=== PATIENT | male | born 1975 | race Two or more races ===

== ENCOUNTER → 2022-06-01 | Outpatient (CLI) | payer MEDICAID | END | disposition home or self-care (01) | LOC: XYW 08:59 | PROVIDERS: ATTEND Student in an Organized Health Care Education/Training Program | DX: I73.9 Peripheral vascular disease, unspecified (principal) | CPT/HCPCS: 93925 ==

== ENCOUNTER 2022-08-09 18:56 | Inpatient (IN) | payer MEDICAID ==
[~2022-08-09] VITALS: Ht 175.3 cm; Wt 71.6 kg
[2022-08-09 20:04] LABS: Basophils # (auto) 0 10 ^3/uL (0-0.2); Basophils % (auto) 0.3 % (0.0-2.0); Eosinophils # (auto) 0.3 10 ^3/uL (0-0.8); Eosinophils % (auto) 4.7 % (0.0-7.0); Hemoglobin 12.8 g/dL (13.5-17.5); Lymphocytes # (auto) 1.3 10 ^3/uL (0.4-5.4); Lymphocytes % (auto) 17.7 % (10.0-50.0); Mean Corpuscular Hemoglobin 28.4 pg (28.0-32.0); Mean Corpuscular Hgb Conc. 32.8 g/dL (32.0-36.0); Mean Corpuscular Volume 86.7 fL (80.0-100.0); Monocytes # (auto) 0.3 10 ^3/uL (0-1.3); Monocytes % (auto) 4.5 % (0.0-12.0); Neutrophils # (auto) 5.2 10 ^3/uL (1.6-8.6); Neutrophils % (auto) 72.8 % (37.0-80.0); Nucleated Red Blood Cells % 0.1 %; Red Cell Distribution Width 14.3 % (11.8-14.3); White Blood Cell 7.2 10^3/uL (4.4-10.8)
[2022-08-09] MEDS ORDERED: FUROSEMIDE 40 MG/4 ML VIAL IV ONE (20:15)
[2022-08-09 20:19] LABS: INR 0.94 (0.9-1.15); Partial Thromboplastin Time 29.6 sec (24.6-33.4)
[2022-08-09 20:23] LABS: Albumin 3.5 g/dL (3.4-5.0); BUN/Creatinine Ratio 25.6; Calcium 9.1 mg/dL (8.5-10.1); Potassium 5.2 mmol/L (3.5-5.1)
[2022-08-09 20:26] LABS: Bilirubin, Total 0.6 mg/dL (0.2-1.0)
[2022-08-09] MEDS ORDERED: ALBUTEROL MEDNEB 2.5 mg/3ml NEB ONE (21:45)
[2022-08-09] MEDS ORDERED: HYDROcodone-ACET 5/325MG TAB PO ONE (21:45)
[2022-08-09] MEDS ORDERED: ONDANSETRON HCL 4 MG/2 ML VIAL IV ONE (23:45)
[2022-08-10] MEDS ORDERED: ALBUTEROL SULF 2.5 MG/0.5ML(0.5%) NEB SOLN NEB ONE (02:00)
[2022-08-10 04:20] VITALS: BP 107/69
[2022-08-10] MEDS ORDERED: DEXTROSE (50%) 50ML SYRG IV PRN (04:30)
[2022-08-10] MEDS ORDERED: ONDANSETRON HCL 4 MG/2 ML VIAL IV PRN (04:30)
[2022-08-10] MEDS ORDERED: NITROGLYCERIN 0.4 MG SL TAB SL PRN (04:30)
[2022-08-10] MEDS ORDERED: ACETAMINOPHEN 325 MG TAB PO PRN (04:30)
[2022-08-10] MEDS: SODIUM CHLORIDE 0.9% 1,000 ML IV SCH ×2 (05:20→21:25)
[2022-08-10 06:02] LABS: Basophils # (auto) 0 10 ^3/uL (0-0.2); Basophils % (auto) 0.5 % (0.0-2.0); Eosinophils # (auto) 0.1 10 ^3/uL (0-0.8); Eosinophils % (auto) 1.4 % (0.0-7.0); Hematocrit 27.5 % (41.0-53.0); Hemoglobin 9.2 g/dL (13.5-17.5); Lymphocytes # (auto) 0.9 10 ^3/uL (0.4-5.4); Lymphocytes % (auto) 14.9 % (10.0-50.0); Mean Corpuscular Hemoglobin 29.3 pg (28.0-32.0); Mean Corpuscular Hgb Conc. 33.3 g/dL (32.0-36.0); Mean Corpuscular Volume 88.2 fL (80.0-100.0); Monocytes # (auto) 0.2 10 ^3/uL (0-1.3); Monocytes % (auto) 4.3 % (0.0-12.0); Neutrophils # (auto) 4.6 10 ^3/uL (1.6-8.6); Neutrophils % (auto) 78.9 % (37.0-80.0); Nucleated Red Blood Cells % 0.1 %; Red Blood Cells 3.12 10^6/uL (4.5-5.90); Red Cell Distribution Width 14.2 % (11.8-14.3); White Blood Cell 5.8 10^3/uL (4.4-10.8)
[2022-08-10 06:21] LABS: Albumin 2.2 g/dL (3.4-5.0); BUN/Creatinine Ratio 26.4; Calcium 6.2 mg/dL (8.5-10.1); Potassium 4.4 mmol/L (3.5-5.1)
[2022-08-10 06:25] LABS: Bilirubin, Total 0.4 mg/dL (0.2-1.0); Total Protein 4.9 g/dL (6.4-8.2)
[2022-08-10] MEDS: ACCU-CHEK COMFORT CURVE STRIP VI SCH ×4 (07:00→21:36)
[2022-08-10] MEDS: InsuLIN REG 1unit/0.01ml Soln (100units/ml) SC SCH ×4 (07:46→21:29)
[2022-08-10 10:27] VITALS: BP 131/74
[2022-08-10] MEDS: FUROSEMIDE 40 MG/4 ML VIAL IV SCH (10:59)
[2022-08-10] MEDS ORDERED: INSU100I43 SC (11:08)
[2022-08-10] MEDS ORDERED: HYDR-4798 PO (11:08)
[2022-08-10] MEDS ORDERED: POTA10TA51 PO (11:08)
[2022-08-10] MEDS ORDERED: GABA100C9 PO (11:08)
[2022-08-10] MEDS ORDERED: INSUINJ37 SC (11:08)
[2022-08-10] MEDS ORDERED: METF-370 PO (11:08)
[2022-08-10] MEDS ORDERED: LISI2.5T47 PO (11:08)
[2022-08-10] MEDS ORDERED: DAPA1TAB4 PO (11:08)
[2022-08-10] MEDS ORDERED: FURO40TA4 PO (11:08)
[2022-08-10] MEDS: MORPHINE SULFATE INJ 2 MG/ml SYRG IV PRN ×3 (11:33→21:24)
[2022-08-10 13:00] VITALS: BP 125/73
[2022-08-10 16:42] VITALS: BP 159/88
[2022-08-10] MEDS: SUCRALFATE 1 GM TAB PO SCH (21:24)
[2022-08-10] MEDS: PANTOPRAZOLE 40 MG TAB PO SCH (21:24)
[2022-08-10 22:00] VITALS: BP 131/74
[2022-08-11] MEDS: MORPHINE SULFATE INJ 2 MG/ml SYRG IV PRN ×4 (02:19→19:52)
[2022-08-11 05:00] VITALS: BP 131/78
[2022-08-11] MEDS: SUCRALFATE 1 GM TAB PO SCH ×4 (06:09→21:53)
[2022-08-11] MEDS: ACCU-CHEK COMFORT CURVE STRIP VI SCH ×4 (06:11→22:04)
[2022-08-11] MEDS: InsuLIN REG 1unit/0.01ml Soln (100units/ml) SC SCH ×4 (06:11→22:04)
[2022-08-11 06:21] LABS: Basophils # (auto) 0 10 ^3/uL (0-0.2); Basophils % (auto) 0.4 % (0.0-2.0); Eosinophils # (auto) 0.2 10 ^3/uL (0-0.8); Eosinophils % (auto) 4.3 % (0.0-7.0); Hematocrit 32.8 % (41.0-53.0); Hemoglobin 11.2 g/dL (13.5-17.5); Lymphocytes % (auto) 17.4 % (10.0-50.0); Mean Corpuscular Hemoglobin 28.7 pg (28.0-32.0); Mean Corpuscular Hgb Conc. 34.3 g/dL (32.0-36.0); Mean Corpuscular Volume 83.7 fL (80.0-100.0); Monocytes # (auto) 0.4 10 ^3/uL (0-1.3); Monocytes % (auto) 7.9 % (0.0-12.0); Nucleated Red Blood Cells % 0.1 %; Red Blood Cells 3.92 10^6/uL (4.5-5.90); Red Cell Distribution Width 13.9 % (11.8-14.3); White Blood Cell 5.7 10^3/uL (4.4-10.8)
[2022-08-11 06:36] LABS: Albumin 2.9 g/dL (3.4-5.0); Calcium 8.4 mg/dL (8.5-10.1); Potassium 4.7 mmol/L (3.5-5.1)
[2022-08-11 06:53] LABS: BUN/Creatinine Ratio 26.5; Bilirubin, Total 0.6 mg/dL (0.2-1.0); Total Protein 6.7 g/dL (6.4-8.2)
[2022-08-11 07:50] VITALS: BP 136/81
[2022-08-11] MEDS: FUROSEMIDE 40 MG/4 ML VIAL IV SCH (10:00)
[2022-08-11] MEDS: PANTOPRAZOLE 40 MG TAB PO SCH ×2 (10:00→21:53)
[2022-08-11 12:43] VITALS: BP 137/85
[2022-08-11] MEDS: SODIUM CHLORIDE 0.9% 1,000 ML IV SCH (13:55)
[2022-08-11 18:16] VITALS: BP 123/84
[2022-08-11 22:00] VITALS: BP 121/77
[2022-08-12] MEDS: MORPHINE SULFATE INJ 2 MG/ml SYRG IV PRN ×4 (00:22→14:39)
[2022-08-12 05:00] VITALS: BP 123/76
[2022-08-12] MEDS: SUCRALFATE 1 GM TAB PO SCH ×4 (06:36→21:38)
[2022-08-12] MEDS: ACCU-CHEK COMFORT CURVE STRIP VI SCH ×4 (06:38→22:03)
[2022-08-12] MEDS: InsuLIN REG 1unit/0.01ml Soln (100units/ml) SC SCH ×4 (06:38→22:03)
[2022-08-12] MEDS: SODIUM CHLORIDE 0.9% 1,000 ML IV SCH ×2 (06:39→23:10)
[2022-08-12 09:00] VITALS: BP 135/82
[2022-08-12] MEDS: FUROSEMIDE 40 MG/4 ML VIAL IV SCH (09:58)
[2022-08-12] MEDS: PANTOPRAZOLE 40 MG TAB PO SCH ×2 (09:58→21:38)
[2022-08-12] MEDS ORDERED: PNEUMOCOCCAL VACC POLYS 25 MCG/0.5 ML VIAL IM ONE (11:00)
[2022-08-12] MEDS ORDERED: INFLUENZA QUAD 2022-2023 0.5 ML SYRG IM ONE (11:00)
[2022-08-12] MEDS: ALBUTEROL SULF 2.5 MG/0.5ML(0.5%) NEB SOLN NEB PRN ×2 (12:12→19:01)
[2022-08-12] MEDS: IPRATROPIUM BROM 0.5 MG/2.5ML INH SOL NEB PRN ×2 (12:12→19:01)
[2022-08-12 13:00] VITALS: BP 130/81
[2022-08-12 17:00] VITALS: BP 159/86
[2022-08-12] MEDS: HYDROcodone-ACET 5/325MG TAB PO PRN (20:01)
[2022-08-12] MEDS ORDERED: ALBUTEROL SULF 2.5 MG/0.5ML(0.5%) NEB SOLN NEB PRN (20:15)
[2022-08-12 22:00] VITALS: BP 145/79
[2022-08-13] MEDS: MORPHINE SULFATE INJ 2 MG/ml SYRG IV PRN ×3 (00:27→12:52)
[2022-08-13 03:39] VITALS: BP 145/79
[2022-08-13] MEDS: HYDROcodone-ACET 5/325MG TAB PO PRN ×2 (04:25→16:24)
[2022-08-13 05:00] VITALS: BP 116/81
[2022-08-13] MEDS: InsuLIN REG 1unit/0.01ml Soln (100units/ml) SC SCH ×3 (05:46→18:45)
[2022-08-13] MEDS: ACCU-CHEK COMFORT CURVE STRIP VI SCH ×3 (05:47→18:43)
[2022-08-13] MEDS: SUCRALFATE 1 GM TAB PO SCH ×3 (06:06→18:43)
[2022-08-13] MEDS: IPRATROPIUM BROM 0.5 MG/2.5ML INH SOL NEB SCH ×2 (07:05→11:49)
[2022-08-13] MEDS: ALBUTEROL SULF 2.5 MG/0.5ML(0.5%) NEB SOLN NEB SCH ×2 (07:05→11:49)
[2022-08-13] MEDS: PANTOPRAZOLE 40 MG TAB PO SCH (08:34)
[2022-08-13] MEDS: FUROSEMIDE 40 MG/4 ML VIAL IV SCH (08:34)
[2022-08-13 09:00] VITALS: BP 128/78
[2022-08-13] MEDS ORDERED: REGADENOSON 0.4 MG/5 ML SYRG IV ONE ×2 (09:34→09:45)
[2022-08-13 09:45] VITALS: BP 126/82
[2022-08-13 12:47] LABS: Hepatitis C Antibody Negative (Negative)
[2022-08-13 13:00] VITALS: BP 85/43
[2022-08-13] MEDS: SODIUM CHLORIDE 0.9% 1,000 ML IV SCH (15:11)
[2022-08-13 17:01] VITALS: BP 118/77
== END 2022-08-13 20:00 | disposition home or self-care (01) | DRG 194 ==
LOC: ER 18:56 → TELE 08-10 04:24 → TELE-WESTW 08-10 10:15
PROVIDERS: ADMIT Nurse Practitioner Family; ATTEND Internal Medicine
DX: I11.0 Hypertensive heart disease with heart failure (principal); J96.01 Acute respiratory failure with hypoxia; I50.9 Heart failure, unspecified; R54 Age-related physical debility; E11.9 Type 2 diabetes mellitus without complications; J21.9 Acute bronchiolitis, unspecified; E87.5 Hyperkalemia; N28.9 Disorder of kidney and ureter, unspecified; Z51.5 Encounter for palliative care; Z83.3 Family history of diabetes mellitus; Z20.822 Contact with and (suspected) exposure to COVID-19
CPT/HCPCS: 36415; 36600; 71045; 71275; 78452; 80053; 82805; 82962; 83880; 84484; 85025; 85610; 85730; 86803; 87340; 87426; 93005; 93017; 93306; 94640; 96374; G0378; J1815; J2405

== ENCOUNTER 2022-08-26 02:31 | Inpatient (IN) | payer MEDICAID ==
[~2022-08-26] VITALS: Ht 162.6 cm; Wt 67.0 kg
[~2022-08-26 02:31] MED LIST: DAPA1TAB4 PO; FURO40TA4 PO; GABA100C9 PO; HYDR-4798 PO; INSU100I43 SC; INSUINJ37 SC; LISI2.5T47 PO; METF-370 PO; POTA10TA51 PO
[2022-08-26] MEDS ORDERED: LACTATED RINGER'S 1,000 ML IV ONE ×2 (03:45)
[2022-08-26 04:00] LABS: Albumin 2.6 g/dL (3.4-5.0); Anion Gap 11 (5-15); BUN/Creatinine Ratio 14.5; Blood Urea Nitrogen 37 mg/dL (7-18); Calcium 7.5 mg/dL (8.5-10.1); Carbon Dioxide 22 mmol/L (21-32); Chloride 101 mmol/L (98-107); GFR African American 35 mL/min; GFR Non-African American 29 mL/min; Potassium 4.7 mmol/L (3.5-5.1); Sodium 134 mmol/L (136-145)
[2022-08-26 04:03] LABS: Lactic Acid w/Reflex 3.5 mmol/L (0.4-2.0)
[2022-08-26 04:14] LABS: Alanine Aminotransferase 18 U/L (16-61); Alkaline Phosphatase 189 U/L (45-117); Aspartate Aminotransferase 13 U/L (15-37); Bilirubin, Total 0.7 mg/dL (0.2-1.0)
[2022-08-26 05:13] LABS: Glucose 432 mg/dL (74-106)
[2022-08-26] MEDS ORDERED: MORPHINE SULFATE 4 MG/ML SYR/VIAL IV ONE (05:45)
[2022-08-26] MEDS ORDERED: ONDANSETRON HCL 4 MG/2 ML VIAL IV ONE (05:45)
[2022-08-26] MEDS ORDERED: InsuLIN REG 1unit/0.01ml Soln (100units/ml) IV ONE (06:45)
[2022-08-26] MEDS ORDERED: LACTATED RINGER'S 2,000 ML IV ONE (06:45)
[2022-08-26 07:27] LABS: INR 0.98 (0.9-1.15); Partial Thromboplastin Time 25.6 sec (24.6-33.4)
[2022-08-26 07:35] LABS: Albumin 2.2 g/dL (3.4-5.0); BUN/Creatinine Ratio 16.7; Calcium 7.4 mg/dL (8.5-10.1); Potassium 4.8 mmol/L (3.5-5.1)
[2022-08-26 07:38] LABS: Bilirubin, Total 0.6 mg/dL (0.2-1.0); Total Protein 5.2 g/dL (6.4-8.2)
[2022-08-26 07:39] LABS: Hematocrit 30.7 % (41.0-53.0); Hemoglobin 10.2 g/dL (13.5-17.5); Mean Corpuscular Hemoglobin 28.8 pg (28.0-32.0); Mean Corpuscular Hgb Conc. 33.3 g/dL (32.0-36.0); Mean Corpuscular Volume 86.4 fL (80.0-100.0); Red Blood Cells 3.56 10^6/uL (4.5-5.90); Red Cell Distribution Width 14.5 % (11.8-14.3); White Blood Cell 8.3 10^3/uL (4.4-10.8)
[2022-08-26 07:48] LABS: Basophils % (manual) 0 (0.0-2.0); Blast Cells 0; Metamyelocytes % 0; Myelocytes % 0; Promyelocytes % 0; Reactive Lymphocytes 0
[2022-08-26 08:28] LABS: Band Neutrophils % (manual) 37; Eosinophils % (manual) 1 (0-7); Lymphocytes % (manual) 4 (10.0-50.0); Monocytes % (manual) 4 (0-12)
[2022-08-26 08:35] LABS: Urine Bacteria MOD /hpf (None Seen); Urine Blood 3+ /uL (Negative); Urine Specific Gravity 1.019 (1.001-1.035); Urine WBC 28 /hpf (0 - 3)
[2022-08-26 08:44] LABS: Alcohol, Urine < 3.0 mg/dL (0-10); Amphetamine Screen, Urine NEGATIVE (NEGATIVE); Benzodiazephine Screen, Urine NEGATIVE (NEGATIVE); Cannabinoid Screen, Urine NEGATIVE (NEGATIVE); Cocaine Screen, Urine NEGATIVE (NEGATIVE); Opiate Scree,Urine POSITIVE (NEGATIVE); Phencyclidine Screen, Urine NEGATIVE (NEGATIVE)
[2022-08-26 08:52] LABS: Barbiturate Scree,Urine NEGATIVE (NEGATIVE)
[2022-08-26] MEDS ORDERED: NITROGLYCERIN 0.4 MG SL TAB SL PRN (10:30)
[2022-08-26] MEDS ORDERED: AZITHROMYCIN 500MG/ 250ML 250 ML IV ONE (10:30)
[2022-08-26] MEDS ORDERED: MORPHINE SULFATE INJ 2 MG/ml SYRG IV PRN (10:30)
[2022-08-26] MEDS ORDERED: cefTRIAXone 1GM/50ML D5W 50 ML IV ONE (10:30)
[2022-08-26] MEDS ORDERED: FOLIC ACID 1 MG TAB PO ONE (10:45)
[2022-08-26] MEDS ORDERED: MULTIPLE VITAMIN TAB PO ONE (10:45)
[2022-08-26] MEDS ORDERED: DEXTROSE (50%) 50ML SYRG IV PRN (10:45)
[2022-08-26] MEDS ORDERED: LORazepam 2MG/ML-1ML VIAL IV SCH (10:45)
[2022-08-26] MEDS ORDERED: THIAMINE HCL 100 MG TAB PO ONE (10:45)
[2022-08-26] MEDS: SODIUM CHLORIDE 0.9% 1,000 ML IV SCH ×2 (10:59→19:28)
[2022-08-26] MEDS: ACCU-CHEK COMFORT CURVE STRIP VI SCH ×3 (11:35→21:13)
[2022-08-26] MEDS: InsuLIN REG 1unit/0.01ml Soln (100units/ml) SC SCH ×3 (11:35→21:49)
[2022-08-26] MEDS ORDERED: LORazepam 2MG/ML-1ML VIAL IV PRN (14:45)
[2022-08-26] MEDS: GABAPENTIN 100 MG CAP PO SCH ×2 (16:52→21:51)
[2022-08-26] MEDS ORDERED: GABAPENTIN 400 MG CAP ONE (21:48)
[2022-08-26] MEDS: INSULIN GLARGINE 17 UNIT SC SCH (21:53)
[2022-08-27] MEDS: SODIUM CHLORIDE 0.9% 1,000 ML IV SCH ×3 (02:44→18:51)
[2022-08-27 05:24] LABS: Basophils # (auto) 0 10 ^3/uL (0-0.2); Basophils % (auto) 0.2 % (0.0-2.0); Eosinophils # (auto) 0.3 10 ^3/uL (0-0.8); Eosinophils % (auto) 3.5 % (0.0-7.0); Hematocrit 28.8 % (41.0-53.0); Lymphocytes # (auto) 0.9 10 ^3/uL (0.4-5.4); Lymphocytes % (auto) 11.7 % (10.0-50.0); Mean Corpuscular Hemoglobin 29.5 pg (28.0-32.0); Mean Corpuscular Hgb Conc. 34.9 g/dL (32.0-36.0); Mean Corpuscular Volume 84.5 fL (80.0-100.0); Monocytes # (auto) 0.4 10 ^3/uL (0-1.3); Monocytes % (auto) 5.2 % (0.0-12.0); Neutrophils # (auto) 6.3 10 ^3/uL (1.6-8.6); Neutrophils % (auto) 79.4 % (37.0-80.0); Nucleated Red Blood Cells % 0.1 %; Red Blood Cells 3.41 10^6/uL (4.5-5.90); Red Cell Distribution Width 14.2 % (11.8-14.3); White Blood Cell 7.9 10^3/uL (4.4-10.8)
[2022-08-27] MEDS ORDERED: HYDROcodone-ACET 5/325MG TAB PO PRN (05:45)
[2022-08-27 05:47] LABS: Albumin 2.1 g/dL (3.4-5.0); Calcium 7.7 mg/dL (8.5-10.1); Potassium 4.4 mmol/L (3.5-5.1)
[2022-08-27 05:49] LABS: Bilirubin, Total 0.5 mg/dL (0.2-1.0); Total Protein 5.6 g/dL (6.4-8.2)
[2022-08-27] MEDS ORDERED: GABAPENTIN 400 MG CAP ONE (05:55)
[2022-08-27] MEDS: GABAPENTIN 100 MG CAP PO SCH (05:55)
[2022-08-27] MEDS: ACCU-CHEK COMFORT CURVE STRIP VI SCH ×4 (06:21→22:31)
[2022-08-27] MEDS: InsuLIN REG 1unit/0.01ml Soln (100units/ml) SC SCH ×4 (06:26→22:35)
[2022-08-27] MEDS: cefTRIAXone 1GM/50ML D5W 50 ML IV SCH (09:33)
[2022-08-27] MEDS: HYDROcodone-ACET 10/325MG TAB PO PRN ×2 (09:35→20:10)
[2022-08-27 09:42] LABS: BUN/Creatinine Ratio 17.7
[2022-08-27] MEDS: DAPAGLIFLOZIN PROPANEDIOL 5 MG PO SCH (10:00)
[2022-08-27] MEDS ORDERED: PATIENTS OWN MEDICATION (Potassium Chloride (Potassium Chloride Cr) 1 TAB) PO SCH (10:00)
[2022-08-27] MEDS: FOLIC ACID 1 MG TAB PO SCH (10:00)
[2022-08-27] MEDS: PANTOPRAZOLE 40 MG/10 ML VIAL INJ IV SCH (10:05)
[2022-08-27] MEDS: THIAMINE HCL 100 MG TAB PO SCH (10:06)
[2022-08-27] MEDS: MULTIPLE VITAMIN TAB PO SCH (10:07)
[2022-08-27] MEDS: ENOXAPARIN SOD 40 MG/0.4 ML SYRINGE SC SCH (10:07)
[2022-08-27] MEDS: AZITHROMYCIN 500MG/ 250ML 250 ML IV SCH (10:33)
[2022-08-27] MEDS: GABAPENTIN 400 MG CAP PO SCH ×2 (14:53→22:31)
[2022-08-27] MEDS: MORPHINE SULFATE INJ 2 MG/ml SYRG IV PRN ×2 (14:54→20:18)
[2022-08-27 22:00] VITALS: BP 119/67
[2022-08-27] MEDS ORDERED: GABAPENTIN 400 MG CAP PO SCH (22:00)
[2022-08-27] MEDS: INSULIN GLARGINE 17 UNIT SC SCH (22:00)
[2022-08-28] MEDS: HYDROcodone-ACET 10/325MG TAB PO PRN ×4 (00:44→17:25)
[2022-08-28] MEDS: SODIUM CHLORIDE 0.9% 1,000 ML IV SCH ×3 (02:43→17:24)
[2022-08-28] MEDS: MORPHINE SULFATE INJ 2 MG/ml SYRG IV PRN ×3 (02:45→19:55)
[2022-08-28 05:00] VITALS: BP 129/71
[2022-08-28] MEDS: GABAPENTIN 400 MG CAP PO SCH ×3 (05:47→21:59)
[2022-08-28] MEDS: ACCU-CHEK COMFORT CURVE STRIP VI SCH ×4 (06:33→21:59)
[2022-08-28] MEDS: InsuLIN REG 1unit/0.01ml Soln (100units/ml) SC SCH ×4 (06:35→22:02)
[2022-08-28 09:29] VITALS: BP 146/88
[2022-08-28] MEDS: DAPAGLIFLOZIN PROPANEDIOL 5 MG PO SCH (10:00)
[2022-08-28] MEDS: PANTOPRAZOLE 40 MG/10 ML VIAL INJ IV SCH (10:55)
[2022-08-28] MEDS: cefTRIAXone 1GM/50ML D5W 50 ML IV SCH ×2 (10:55→12:06)
[2022-08-28] MEDS: AZITHROMYCIN 500MG/ 250ML 250 ML IV SCH (10:56)
[2022-08-28] MEDS: FOLIC ACID 1 MG TAB PO SCH (10:56)
[2022-08-28] MEDS: THIAMINE HCL 100 MG TAB PO SCH (10:58)
[2022-08-28] MEDS: MULTIPLE VITAMIN TAB PO SCH (10:58)
[2022-08-28] MEDS: ENOXAPARIN SOD 40 MG/0.4 ML SYRINGE SC SCH (10:58)
[2022-08-28 13:07] VITALS: BP 130/79
[2022-08-28 17:20] VITALS: BP 161/92
[2022-08-28 22:00] VITALS: BP 139/78
[2022-08-28] MEDS: INSULIN GLARGINE 17 UNIT SC SCH (22:00)
[2022-08-29] MEDS: HYDROcodone-ACET 10/325MG TAB PO PRN ×3 (00:42→23:10)
[2022-08-29] MEDS: SODIUM CHLORIDE 0.9% 1,000 ML IV SCH ×3 (02:55→19:06)
[2022-08-29] MEDS: MORPHINE SULFATE INJ 2 MG/ml SYRG IV PRN ×4 (04:30→20:51)
[2022-08-29 05:00] VITALS: BP 156/49
[2022-08-29] MEDS: GABAPENTIN 400 MG CAP PO SCH ×3 (05:46→21:58)
[2022-08-29] MEDS: ACCU-CHEK COMFORT CURVE STRIP VI SCH ×4 (06:31→21:49)
[2022-08-29] MEDS: InsuLIN REG 1unit/0.01ml Soln (100units/ml) SC SCH ×4 (06:37→21:54)
[2022-08-29 08:00] VITALS: BP 105/59
[2022-08-29] MEDS: cefTRIAXone 1GM/50ML D5W 50 ML IV SCH (09:26)
[2022-08-29] MEDS: ENOXAPARIN SOD 40 MG/0.4 ML SYRINGE SC SCH (09:30)
[2022-08-29] MEDS: PANTOPRAZOLE 40 MG/10 ML VIAL INJ IV SCH (09:30)
[2022-08-29] MEDS: FUROSEMIDE 40 MG TAB PO SCH (09:32)
[2022-08-29] MEDS: THIAMINE HCL 100 MG TAB PO SCH (09:33)
[2022-08-29] MEDS: MULTIPLE VITAMIN TAB PO SCH (09:33)
[2022-08-29] MEDS: FOLIC ACID 1 MG TAB PO SCH (09:33)
[2022-08-29] MEDS: DAPAGLIFLOZIN PROPANEDIOL 5 MG PO SCH (09:42)
[2022-08-29] MEDS: AZITHROMYCIN 500MG/ 250ML 250 ML IV SCH (12:10)
[2022-08-29 16:00] VITALS: BP 150/82
[2022-08-29] MEDS: INSULIN GLARGINE 17 UNIT SC SCH (21:59)
[2022-08-29 22:00] VITALS: BP 156/89
[2022-08-30] VITALS (7 sets, daily range): BP systolic 110–170; BP diastolic 60–96
[2022-08-30] MEDS: MORPHINE SULFATE INJ 2 MG/ml SYRG IV PRN ×5 (02:23→20:17)
[2022-08-30] MEDS: SODIUM CHLORIDE 0.9% 1,000 ML IV SCH ×3 (03:26→18:30)
[2022-08-30] MEDS: GABAPENTIN 400 MG CAP PO SCH ×3 (05:44→21:24)
[2022-08-30] MEDS: hydrALAZINE HCL 20 MG/ML VL IV PRN ×2 (05:45→21:06)
[2022-08-30] MEDS: HYDROcodone-ACET 10/325MG TAB PO PRN ×4 (06:00→23:13)
[2022-08-30] MEDS: ACCU-CHEK COMFORT CURVE STRIP VI SCH ×4 (06:47→21:25)
[2022-08-30] MEDS: InsuLIN REG 1unit/0.01ml Soln (100units/ml) SC SCH ×4 (06:48→21:25)
[2022-08-30] MEDS: DAPAGLIFLOZIN PROPANEDIOL 5 MG PO SCH (10:00)
[2022-08-30] MEDS: cefTRIAXone 1GM/50ML D5W 50 ML IV SCH (10:32)
[2022-08-30] MEDS: ENOXAPARIN SOD 40 MG/0.4 ML SYRINGE SC SCH (10:44)
[2022-08-30] MEDS: FOLIC ACID 1 MG TAB PO SCH (10:45)
[2022-08-30] MEDS: THIAMINE HCL 100 MG TAB PO SCH (10:45)
[2022-08-30] MEDS: FUROSEMIDE 40 MG TAB PO SCH (10:45)
[2022-08-30] MEDS: MULTIPLE VITAMIN TAB PO SCH (10:46)
[2022-08-30] MEDS: PANTOPRAZOLE 40 MG/10 ML VIAL INJ IV SCH (10:46)
[2022-08-30] MEDS: AZITHROMYCIN 500MG/ 250ML 250 ML IV SCH (12:43)
[2022-08-30] MEDS ORDERED: MEROPENEM 1GM IVPB 100 ML IV SCH (16:00)
[2022-08-30] MEDS ORDERED: ERTAPENEM SOD INJ 1 GM in SODIUM CHL 0.9% 50 ML IV ONE (16:30)
[2022-08-30] MEDS: INSULIN GLARGINE 17 UNIT SC SCH (21:29)
[2022-08-31] MEDS: MORPHINE SULFATE INJ 2 MG/ml SYRG IV PRN ×3 (02:14→11:39)
[2022-08-31] MEDS: SODIUM CHLORIDE 0.9% 1,000 ML IV SCH ×2 (02:30→12:56)
[2022-08-31] MEDS: HYDROcodone-ACET 10/325MG TAB PO PRN ×2 (04:49→08:31)
[2022-08-31 05:21] VITALS: BP 121/69
[2022-08-31 05:22] LABS: Basophils # (auto) 0 10 ^3/uL (0-0.2); Basophils % (auto) 0.3 % (0.0-2.0); Eosinophils # (auto) 0.3 10 ^3/uL (0-0.8); Eosinophils % (auto) 7.3 % (0.0-7.0); Hematocrit 29.1 % (41.0-53.0); Lymphocytes % (auto) 22.4 % (10.0-50.0); Mean Corpuscular Hemoglobin 28.9 pg (28.0-32.0); Mean Corpuscular Hgb Conc. 34.3 g/dL (32.0-36.0); Mean Corpuscular Volume 84.2 fL (80.0-100.0); Monocytes # (auto) 0.3 10 ^3/uL (0-1.3); Monocytes % (auto) 5.4 % (0.0-12.0); Neutrophils % (auto) 64.6 % (37.0-80.0); Red Blood Cells 3.46 10^6/uL (4.5-5.90); Red Cell Distribution Width 14.1 % (11.8-14.3); White Blood Cell 4.6 10^3/uL (4.4-10.8)
[2022-08-31 05:36] LABS: Calcium 7.7 mg/dL (8.5-10.1); Potassium 4.6 mmol/L (3.5-5.1)
[2022-08-31 05:37] LABS: BUN/Creatinine Ratio 17.9 (10.0-20.0)
[2022-08-31] MEDS: GABAPENTIN 400 MG CAP PO SCH ×2 (06:00→13:51)
[2022-08-31] MEDS: ACCU-CHEK COMFORT CURVE STRIP VI SCH ×3 (06:37→17:00)
[2022-08-31] MEDS: InsuLIN REG 1unit/0.01ml Soln (100units/ml) SC SCH ×3 (06:41→17:00)
[2022-08-31 08:00] VITALS: BP 123/74
[2022-08-31] MEDS: PANTOPRAZOLE 40 MG/10 ML VIAL INJ IV SCH (08:14)
[2022-08-31] MEDS: ENOXAPARIN SOD 40 MG/0.4 ML SYRINGE SC SCH (08:14)
[2022-08-31] MEDS: FOLIC ACID 1 MG TAB PO SCH (08:14)
[2022-08-31] MEDS: THIAMINE HCL 100 MG TAB PO SCH (08:14)
[2022-08-31] MEDS: MULTIPLE VITAMIN TAB PO SCH (08:15)
[2022-08-31 08:25] VITALS: BP 123/74
[2022-08-31] MEDS: FUROSEMIDE 40 MG TAB PO SCH (09:47)
[2022-08-31] MEDS: AZITHROMYCIN 500MG/ 250ML 250 ML IV SCH (09:48)
[2022-08-31] MEDS: DAPAGLIFLOZIN PROPANEDIOL 5 MG PO SCH (10:00)
[2022-08-31] MEDS ORDERED: ERTAPENEM SOD INJ 1 GM in SODIUM CHL 0.9% 50 ML IV SCH (10:00)
[2022-08-31] MEDS ORDERED: AUG875T PO (12:14)
[2022-08-31] MEDS ORDERED: BACDST PO (12:14)
[2022-08-31 12:20] VITALS: BP 135/82
[2022-08-31 16:35] VITALS: BP 140/85
== END 2022-08-31 17:35 | disposition home health service (06) | DRG 720 ==
LOC: EDBD 02:31 → ER 02:32 → OVERFLOW 10:27 → TELE-EAST 08-27 17:12 → EAST 08-27 17:33 → TELE-EAST 08-27 17:47
PROVIDERS: ADMIT Registered Nurse; ATTEND Internal Medicine
DX: A41.9 Sepsis, unspecified organism (principal); N17.0 Acute kidney failure with tubular necrosis; J18.9 Pneumonia, unspecified organism; I11.0 Hypertensive heart disease with heart failure; E44.1 Mild protein-calorie malnutrition; D63.8 Anemia in other chronic diseases classified elsewhere; E88.09 Other disorders of plasma-protein metabolism, not elsewhere classified; I50.9 Heart failure, unspecified; E11.42 Type 2 diabetes mellitus with diabetic polyneuropathy; Z20.822 Contact with and (suspected) exposure to COVID-19; E86.0 Dehydration; E11.65 Type 2 diabetes mellitus with hyperglycemia; E78.00 Pure hypercholesterolemia, unspecified; N39.0 Urinary tract infection, site not specified; G89.4 Chronic pain syndrome; Z16.12 Extended spectrum beta lactamase (ESBL) resistance; Z79.4 Long term (current) use of insulin; Z90.49 Acquired absence of other specified parts of digestive tract
CPT/HCPCS: 36415; 36600; 51702; 70450; 71045; 80048; 80053; 80061; 80307; 80320; 81001; 82010; 82553; 82805; 82962; 83036; 83605; 83690; 83735; 83880; 83930; 84443; 84484; 85007; 85025; 85027; 85610; 85730; 87040; 87086; 87426; 87804; 93886; 96361; 96374; 96375; 97163; 99291; C9113; G0378; J0696; J1335; J1815; J2405

== ENCOUNTER 2022-09-28 16:19 | Inpatient (IN) | payer MEDICAID ==
[~2022-09-28] VITALS: Ht 175.3 cm; Wt 69.0 kg
[~2022-09-28 16:19] MED LIST changes: +AUG875T PO; +BACDST PO
[2022-09-28] MEDS ORDERED: SODIUM CHLORIDE 0.9% 500 ML IVB ONE (17:15)
[2022-09-28] MEDS ORDERED: ONDANSETRON HCL 4 MG/2 ML VIAL IV ONE (17:15)
[2022-09-28] MEDS ORDERED: MORPHINE SULFATE 4 MG/ML SYR/VIAL IV ONE (17:15)
[2022-09-28 17:38] LABS: Basophils # (auto) 0 10 ^3/uL (0-0.2); Basophils % (auto) 0.4 % (0.0-2.0); Eosinophils # (auto) 0.2 10 ^3/uL (0-0.8); Hematocrit 39.6 % (41.0-53.0); Lymphocytes # (auto) 1.7 10 ^3/uL (0.4-5.4); Lymphocytes % (auto) 33.8 % (10.0-50.0); Mean Corpuscular Hemoglobin 28.8 pg (28.0-32.0); Mean Corpuscular Hgb Conc. 32.8 g/dL (32.0-36.0); Mean Corpuscular Volume 87.7 fL (80.0-100.0); Monocytes # (auto) 0.3 10 ^3/uL (0-1.3); Monocytes % (auto) 5.7 % (0.0-12.0); Neutrophils # (auto) 2.7 10 ^3/uL (1.6-8.6); Neutrophils % (auto) 55.1 % (37.0-80.0); Nucleated Red Blood Cells % 0.1 %; Red Blood Cells 4.52 10^6/uL (4.5-5.90); Red Cell Distribution Width 15.7 % (11.8-14.3); White Blood Cell 4.9 10^3/uL (4.4-10.8)
[2022-09-28 17:44] LABS: Albumin 3.2 g/dL (3.4-5.0); Calcium 8.5 mg/dL (8.5-10.1); Potassium 4.8 mmol/L (3.5-5.1)
[2022-09-28 17:46] LABS: BUN/Creatinine Ratio 24.6 (10.0-20.0)
[2022-09-28 17:57] LABS: Bilirubin, Total 0.6 mg/dL (0.2-1.0)
[2022-09-28 19:32] LABS: Urine Bacteria NONE SEEN /hpf (None Seen); Urine Blood 3+ /uL (Negative); Urine Specific Gravity 1.015 (1.001-1.035); Urine WBC 28 /hpf (0 - 3); Urine WBC Clumps PRESENT /hpf (None Seen)
[2022-09-28] MEDS ORDERED: cefTRIAXone 1GM/50ML D5W 50 ML IV ONE (20:00)
[2022-09-28] MEDS ORDERED: DEXTROSE (50%) 50ML SYRG IV PRN ×2 (21:00→23:30)
[2022-09-28] MEDS: SODIUM CHLORIDE 0.9% 1,000 ML IV SCH (21:11)
[2022-09-28] MEDS ORDERED: ACETAMINOPHEN 325 MG TAB PO PRN (21:15)
[2022-09-28] MEDS ORDERED: InsuLIN REG 1unit/0.01ml Soln (100units/ml) SC SCH (22:00)
[2022-09-28] MEDS ORDERED: ACCU-CHEK COMFORT CURVE STRIP VI SCH (22:00)
[2022-09-28] MEDS: GABAPENTIN 400 MG CAP PO SCH (22:36)
[2022-09-28] MEDS: MORPHINE SULFATE INJ 2 MG/ml SYRG IV PRN (22:37)
[2022-09-28] MEDS: HYDROcodone-ACET 5/325MG TAB PO PRN (23:26)
[2022-09-29] MEDS: InsuLIN REG 1unit/0.01ml Soln (100units/ml) SC SCH ×6 (00:48→21:56)
[2022-09-29] MEDS: ACCU-CHEK COMFORT CURVE STRIP VI SCH ×6 (04:13→20:00)
[2022-09-29] MEDS: metFORMIN HYDROCHLORIDE 500 MG TAB PO SCH ×2 (06:12→18:28)
[2022-09-29] MEDS: GABAPENTIN 400 MG CAP PO SCH ×3 (06:12→21:48)
[2022-09-29] MEDS ORDERED: DEXTROSE 10% 250 ML IV ONE (07:12)
[2022-09-29 07:24] LABS: Basophils # (auto) 0 10 ^3/uL (0-0.2); Basophils % (auto) 0.6 % (0.0-2.0); Eosinophils # (auto) 0.2 10 ^3/uL (0-0.8); Eosinophils % (auto) 5.3 % (0.0-7.0); Hematocrit 34.3 % (41.0-53.0); Hemoglobin 11.6 g/dL (13.5-17.5); Lymphocytes # (auto) 1.7 10 ^3/uL (0.4-5.4); Lymphocytes % (auto) 37.7 % (10.0-50.0); Mean Corpuscular Hemoglobin 29.5 pg (28.0-32.0); Mean Corpuscular Hgb Conc. 33.8 g/dL (32.0-36.0); Mean Corpuscular Volume 87.3 fL (80.0-100.0); Monocytes # (auto) 0.4 10 ^3/uL (0-1.3); Monocytes % (auto) 8.5 % (0.0-12.0); Neutrophils # (auto) 2.1 10 ^3/uL (1.6-8.6); Neutrophils % (auto) 47.9 % (37.0-80.0); Red Blood Cells 3.92 10^6/uL (4.5-5.90); Red Cell Distribution Width 15.2 % (11.8-14.3); White Blood Cell 4.4 10^3/uL (4.4-10.8)
[2022-09-29 07:35] LABS: Albumin 2.8 g/dL (3.4-5.0); Calcium 8.2 mg/dL (8.5-10.1); Potassium 3.9 mmol/L (3.5-5.1)
[2022-09-29] MEDS: MORPHINE SULFATE INJ 2 MG/ml SYRG IV PRN ×3 (07:36→18:58)
[2022-09-29 07:40] LABS: BUN/Creatinine Ratio 23.6 (10.0-20.0); Bilirubin, Total 0.5 mg/dL (0.2-1.0); Total Protein 5.9 g/dL (6.4-8.2)
[2022-09-29] MEDS: cefTRIAXone 1GM/50ML D5W 50 ML IV SCH (09:00)
[2022-09-29] MEDS: HYDROcodone-ACET 5/325MG TAB PO PRN ×3 (09:48→18:29)
[2022-09-29] MEDS: SODIUM CHLORIDE 0.9% 1,000 ML IV SCH ×2 (13:45→14:47)
[2022-09-29 17:10] VITALS: BP 152/86
[2022-09-29 17:57] VITALS: BP 152/80
[2022-09-29 22:00] VITALS: BP 109/66
[2022-09-30] MEDS: SODIUM CHLORIDE 0.9% 1,000 ML IV SCH ×3 (00:45→20:48)
[2022-09-30] MEDS: ACCU-CHEK COMFORT CURVE STRIP VI SCH ×6 (01:31→20:02)
[2022-09-30] MEDS: InsuLIN REG 1unit/0.01ml Soln (100units/ml) SC SCH ×6 (01:32→20:00)
[2022-09-30] MEDS: MORPHINE SULFATE INJ 2 MG/ml SYRG IV PRN ×4 (03:10→22:28)
[2022-09-30 05:00] VITALS: BP 119/69
[2022-09-30] MEDS: metFORMIN HYDROCHLORIDE 500 MG TAB PO SCH ×2 (06:52→17:54)
[2022-09-30] MEDS: GABAPENTIN 400 MG CAP PO SCH ×3 (06:52→22:19)
[2022-09-30] MEDS: cefTRIAXone 1GM/50ML D5W 50 ML IV SCH (08:37)
[2022-09-30] MEDS: HYDROcodone-ACET 5/325MG TAB PO PRN ×2 (10:54→17:55)
[2022-09-30] MEDS ORDERED: MEROPENEM 1GM IVPB 50 ML IV SCH (11:45)
[2022-09-30 12:55] VITALS: BP 133/72
[2022-09-30 13:00] VITALS: BP 160/95
[2022-09-30] MEDS: MEROPENEM 1GM IVPB 100 ML IV SCH ×2 (13:56→22:19)
[2022-09-30 16:40] VITALS: BP 118/76
[2022-09-30 20:00] VITALS: BP 128/71
[2022-09-30 22:00] VITALS: BP 128/71
[2022-10-01] MEDS: HYDROcodone-ACET 5/325MG TAB PO PRN ×3 (01:04→17:48)
[2022-10-01] MEDS: ACCU-CHEK COMFORT CURVE STRIP VI SCH ×7 (04:20→23:54)
[2022-10-01] MEDS: MORPHINE SULFATE INJ 2 MG/ml SYRG IV PRN ×4 (04:21→21:01)
[2022-10-01] MEDS: InsuLIN REG 1unit/0.01ml Soln (100units/ml) SC SCH ×7 (04:30→23:54)
[2022-10-01 05:00] VITALS: BP 263/98
[2022-10-01] MEDS: GABAPENTIN 400 MG CAP PO SCH ×3 (06:14→21:41)
[2022-10-01] MEDS: MEROPENEM 1GM IVPB 100 ML IV SCH ×3 (06:14→21:39)
[2022-10-01] MEDS: metFORMIN HYDROCHLORIDE 500 MG TAB PO SCH ×2 (06:28→17:47)
[2022-10-01] MEDS: SODIUM CHLORIDE 0.9% 1,000 ML IV SCH ×2 (06:28→16:45)
[2022-10-01 09:00] VITALS: BP 117/73
[2022-10-01] MEDS ORDERED: FLEET ENEMA(ADULT) 135 ML PR ONE (12:30)
[2022-10-01 12:31] VITALS: BP 132/94
[2022-10-01 15:43] LABS: INR 0.96 (0.9-1.15); Partial Thromboplastin Time 26.8 sec (24.6-33.4)
[2022-10-01 16:51] VITALS: BP 108/71
[2022-10-01] MEDS ORDERED: LIDOCAINE 1% (LOCAL ANESTH.) PF 5ml SDV ID ONE (18:00)
[2022-10-01 20:00] VITALS: BP 110/70
[2022-10-01] MEDS: SODIUM CHLOR 0.9% PF (SALINE LOCK) 10ML VIAL/SYR IV SCH (21:39)
[2022-10-01 21:49] VITALS: BP 118/70
[2022-10-02] MEDS: SODIUM CHLORIDE 0.9% 1,000 ML IV SCH ×2 (03:19→12:45)
[2022-10-02] MEDS: HYDROcodone-ACET 5/325MG TAB PO PRN ×3 (03:20→18:02)
[2022-10-02] MEDS: ACCU-CHEK COMFORT CURVE STRIP VI SCH ×5 (04:09→21:35)
[2022-10-02] MEDS: InsuLIN REG 1unit/0.01ml Soln (100units/ml) SC SCH ×5 (04:12→22:00)
[2022-10-02 04:26] VITALS: BP 146/89
[2022-10-02] MEDS: GABAPENTIN 400 MG CAP PO SCH ×3 (06:00→21:37)
[2022-10-02] MEDS: MEROPENEM 1GM IVPB 100 ML IV SCH ×3 (06:24→21:36)
[2022-10-02] MEDS: metFORMIN HYDROCHLORIDE 500 MG TAB PO SCH ×2 (06:43→16:58)
[2022-10-02 06:59] LABS: Calcium 8.5 mg/dL (8.5-10.1); Potassium 5.1 mmol/L (3.5-5.1)
[2022-10-02 07:01] LABS: BUN/Creatinine Ratio 23.2 (10.0-20.0)
[2022-10-02 07:09] LABS: Basophils # (auto) 0 10 ^3/uL (0-0.2); Basophils % (auto) 0.3 % (0.0-2.0); Eosinophils # (auto) 0.1 10 ^3/uL (0-0.8); Eosinophils % (auto) 2.3 % (0.0-7.0); Hemoglobin 11.3 g/dL (13.5-17.5); Lymphocytes % (auto) 28.4 % (10.0-50.0); Mean Corpuscular Hemoglobin 29.4 pg (28.0-32.0); Mean Corpuscular Hgb Conc. 34.2 g/dL (32.0-36.0); Mean Corpuscular Volume 85.9 fL (80.0-100.0); Monocytes # (auto) 0.2 10 ^3/uL (0-1.3); Monocytes % (auto) 6.3 % (0.0-12.0); Neutrophils # (auto) 2.3 10 ^3/uL (1.6-8.6); Neutrophils % (auto) 62.7 % (37.0-80.0); Nucleated Red Blood Cells % 0.1 %; Red Blood Cells 3.84 10^6/uL (4.5-5.90); Red Cell Distribution Width 15.1 % (11.8-14.3); White Blood Cell 3.7 10^3/uL (4.4-10.8)
[2022-10-02] MEDS: MORPHINE SULFATE INJ 2 MG/ml SYRG IV PRN ×3 (08:34→21:51)
[2022-10-02] MEDS: SODIUM CHLOR 0.9% PF (SALINE LOCK) 10ML VIAL/SYR IV SCH ×2 (09:35→21:37)
[2022-10-02] MEDS ORDERED: FLEET ENEMA(ADULT) 135 ML PR ONE (11:30)
[2022-10-02] MEDS ORDERED: GASTROGRAFIN 30 ML SOL ONE (13:46)
[2022-10-02 17:09] VITALS: BP 155/95
[2022-10-02 20:00] VITALS: BP 151/77
[2022-10-02 23:19] VITALS: BP 151/77
[2022-10-03] VITALS (7 sets, daily range): BP systolic 105–159; BP diastolic 51–100
[2022-10-03] MEDS: SODIUM CHLORIDE 0.9% 1,000 ML IV SCH ×3 (01:27→23:15)
[2022-10-03] MEDS: ACCU-CHEK COMFORT CURVE STRIP VI SCH ×5 (01:29→23:13)
[2022-10-03] MEDS: InsuLIN REG 1unit/0.01ml Soln (100units/ml) SC SCH ×5 (01:31→22:00)
[2022-10-03] MEDS: MORPHINE SULFATE INJ 2 MG/ml SYRG IV PRN ×5 (02:10→23:16)
[2022-10-03] MEDS: MEROPENEM 1GM IVPB 100 ML IV SCH ×3 (06:15→23:12)
[2022-10-03] MEDS: GABAPENTIN 400 MG CAP PO SCH ×3 (06:20→23:13)
[2022-10-03] MEDS: metFORMIN HYDROCHLORIDE 500 MG TAB PO SCH ×2 (06:22→17:38)
[2022-10-03] MEDS ORDERED: DEXTROSE (50%) 50ML SYRG IV PRN (08:15)
[2022-10-03] MEDS: SODIUM CHLOR 0.9% PF (SALINE LOCK) 10ML VIAL/SYR IV SCH ×2 (10:14→23:13)
[2022-10-03] MEDS: HYDROcodone-ACET 5/325MG TAB PO PRN ×2 (10:15→14:42)
[2022-10-04] VITALS (8 sets, daily range): BP systolic 117–175; BP diastolic 65–99
[2022-10-04] MEDS: MORPHINE SULFATE INJ 2 MG/ml SYRG IV PRN ×5 (03:19→22:08)
[2022-10-04] MEDS: SODIUM CHLORIDE 0.9% 1,000 ML IV SCH ×3 (04:45→21:35)
[2022-10-04] MEDS: HYDROcodone-ACET 5/325MG TAB PO PRN ×2 (05:48→20:15)
[2022-10-04] MEDS: GABAPENTIN 400 MG CAP PO SCH ×3 (05:48→22:07)
[2022-10-04] MEDS: MEROPENEM 1GM IVPB 100 ML IV SCH ×3 (05:51→21:35)
[2022-10-04] MEDS: ACCU-CHEK COMFORT CURVE STRIP VI SCH ×4 (05:58→21:35)
[2022-10-04] MEDS: InsuLIN REG 1unit/0.01ml Soln (100units/ml) SC SCH ×4 (06:00→22:08)
[2022-10-04] MEDS: metFORMIN HYDROCHLORIDE 500 MG TAB PO SCH ×2 (06:38→16:57)
[2022-10-04] MEDS: SODIUM CHLOR 0.9% PF (SALINE LOCK) 10ML VIAL/SYR IV SCH ×2 (08:02→21:37)
[2022-10-05] MEDS: HYDROcodone-ACET 5/325MG TAB PO PRN ×3 (00:16→11:22)
[2022-10-05] MEDS: MORPHINE SULFATE INJ 2 MG/ml SYRG IV PRN ×2 (02:30→08:33)
[2022-10-05 05:00] VITALS: BP 155/81
[2022-10-05] MEDS: GABAPENTIN 400 MG CAP PO SCH (06:15)
[2022-10-05] MEDS: metFORMIN HYDROCHLORIDE 500 MG TAB PO SCH (06:15)
[2022-10-05] MEDS: MEROPENEM 1GM IVPB 100 ML IV SCH (06:15)
[2022-10-05] MEDS: ACCU-CHEK COMFORT CURVE STRIP VI SCH ×2 (06:16→11:26)
[2022-10-05] MEDS: InsuLIN REG 1unit/0.01ml Soln (100units/ml) SC SCH ×2 (06:19→12:05)
[2022-10-05 08:00] VITALS: BP 173/94
[2022-10-05 09:50] VITALS: BP 146/91
[2022-10-05] MEDS: SODIUM CHLOR 0.9% PF (SALINE LOCK) 10ML VIAL/SYR IV SCH (09:52)
[2022-10-05] MEDS: SODIUM CHLORIDE 0.9% 1,000 ML IV SCH (09:54)
== END 2022-10-05 12:55 | DRG 463 ==
LOC: ER 16:19 → CENTRAL 17:08 → OVERFLOW 21:05 → CENTRAL 09-29 17:32
PROVIDERS: ADMIT Nurse Practitioner Family; ATTEND Internal Medicine
PROC: 05H933Z Insertion of Infusion Device into Right Brachial Vein, Percutaneous Approach (ICD-10-PCS; principal; 2022-10-01)
PROC: B54MZZA Ultrasonography of Right Upper Extremity Veins, Guidance (ICD-10-PCS; 2022-10-01)
DX: N39.0 Urinary tract infection, site not specified (principal); N17.9 Acute kidney failure, unspecified; G82.20 Paraplegia, unspecified; E46 Unspecified protein-calorie malnutrition; E11.40 Type 2 diabetes mellitus with diabetic neuropathy, unspecified; E87.1 Hypo-osmolality and hyponatremia; N32.1 Vesicointestinal fistula; B96.20 Unspecified Escherichia coli [E. coli] as the cause of diseases classified elsewhere; I50.9 Heart failure, unspecified; E78.5 Hyperlipidemia, unspecified; Z68.22 Body mass index [BMI] 22.0-22.9, adult; I11.0 Hypertensive heart disease with heart failure; Z20.822 Contact with and (suspected) exposure to COVID-19; I25.10 Atherosclerotic heart disease of native coronary artery without angina pectoris; Z16.12 Extended spectrum beta lactamase (ESBL) resistance; Z83.3 Family history of diabetes mellitus; Z87.440 Personal history of urinary (tract) infections; Z99.3 Dependence on wheelchair; Z90.49 Acquired absence of other specified parts of digestive tract
CPT/HCPCS: 36415; 36569; 74176; 80048; 80053; 81001; 82962; 83036; 83605; 85025; 85610; 85730; 87040; 87086; 87088; 87186; 87426; 93005; 96374; 96375; 97110; 97116; 97163; 97530; G0378; J0696; J1815; J2185; J2405

== ENCOUNTER 2023-02-11 13:51 | Inpatient (IN) | payer MEDICAID ==
[~2023-02-11] VITALS: Ht 175.3 cm; Wt 68.9 kg
[~2023-02-11 13:51] MED LIST changes: +GABA-1308 PO; -GABA100C9 PO
[2023-02-11 14:53] LABS: Alanine Aminotransferase 33 U/L (7-40); Albumin 3.4 g/dL (3.2-4.8); Alkaline Phosphatase 194 U/L (46-116); Anion Gap 7.4 (5-15); Aspartate Aminotransferase 46 U/L (13-40); BUN/Creatinine Ratio 7.3 (10.0-20.0); Bilirubin, Total 0.5 mg/dL (0.2-1.0); Blood Urea Nitrogen 13 mg/dL (9-23); Calcium 7.8 mg/dL (8.7-10.4); Carbon Dioxide 23.6 mmol/L (20-30); Chloride 105 mmol/L (98-107); Magnesium 1.9 mg/dL (1.6-2.6); Potassium 5.2 mmol/L (3.5-5.1); Sodium 136 mmol/L (136-145); Total Protein 5.7 g/dL (5.7-8.2)
[2023-02-11 15:05] LABS: Glucose 513 mg/dL (74-106)
[2023-02-11 15:08] LABS: Basophils # (auto) 0 10 ^3/uL (0-0.2); Basophils % (auto) 0.4 % (0.0-2.0); Eosinophils # (auto) 0 10 ^3/uL (0-0.8); Eosinophils % (auto) 1.1 % (0.0-7.0); Hematocrit 34.6 % (41.0-53.0); Hemoglobin 11.4 g/dL (13.5-17.5); Lymphocytes # (auto) 1.2 10 ^3/uL (0.4-5.4); Lymphocytes % (auto) 30.1 % (10.0-50.0); Mean Corpuscular Hemoglobin 29.6 pg (28.0-32.0); Mean Corpuscular Hgb Conc. 33.1 g/dL (32.0-36.0); Mean Corpuscular Volume 89.6 fL (80.0-100.0); Monocytes # (auto) 0.3 10 ^3/uL (0-1.3); Monocytes % (auto) 6.4 % (0.0-12.0); Neutrophils # (auto) 2.5 10 ^3/uL (1.6-8.6); Nucleated Red Blood Cells % 0.2 %; Red Blood Cells 3.86 10^6/uL (4.5-5.90); Red Cell Distribution Width 14.4 % (11.8-14.3); White Blood Cell 4.1 10^3/uL (4.4-10.8)
[2023-02-11] MEDS ORDERED: InsuLIN REG 1unit/0.01ml Soln (100units/ml) IV ONE ×2 (16:00→17:00)
[2023-02-11] MEDS ORDERED: MORPHINE SULFATE 4 MG/ML SYR/VIAL IV ONE (16:00)
[2023-02-11 16:40] LABS: INR 0.93 (0.9-1.15); Partial Thromboplastin Time 20.7 SEC (24.5-34.5); Prothrombin Time 9.8 sec (9.3-11.8)
[2023-02-11] MEDS ORDERED: DEXTROSE (50%) 50ML SYRG IV PRN (18:45)
[2023-02-11] MEDS: ACCU-CHEK COMFORT CURVE STRIP VI SCH (23:26)
[2023-02-11] MEDS: InsuLIN REG 1unit/0.01ml Soln (100units/ml) SC SCH (23:27)
[2023-02-11] MEDS: HYDROcodone-ACET 10/325MG TAB PO PRN (23:42)
[2023-02-12] MEDS ORDERED: hydrALAZINE HCL 20 MG/ML VL IV PRN (00:30)
[2023-02-12 00:49] LABS: Urine Bacteria NONE SEEN /hpf (None Seen); Urine Blood 1+ /uL (Negative); Urine Clarity Clear (Clear); Urine Color Colorless (Yellow); Urine Protein, UAD 1+ (Negative); Urine Specific Gravity 1.013 (1.001-1.035); Urine Urobilinogen Normal (Negative); Urine WBC <1 /hpf (0 - 3)
[2023-02-12 00:54] LABS: Amphetamine Screen, Urine Neg (NEGATIVE); Barbiturate Scree,Urine Neg (NEGATIVE); Benzodiazephine Screen, Urine Neg (NEGATIVE); Cannabinoid Screen, Urine Neg (NEGATIVE); Cocaine Screen, Urine Neg (NEGATIVE); Opiate Scree,Urine Neg (NEGATIVE); Phencyclidine Screen, Urine Neg (NEGATIVE)
[2023-02-12] MEDS: GABAPENTIN 400 MG CAP PO SCH ×4 (01:10→23:38)
[2023-02-12] MEDS: ACCU-CHEK COMFORT CURVE STRIP VI SCH ×4 (06:40→23:38)
[2023-02-12] MEDS: InsuLIN REG 1unit/0.01ml Soln (100units/ml) SC SCH ×4 (06:41→23:26)
[2023-02-12] MEDS: HYDROcodone-ACET 10/325MG TAB PO PRN ×3 (07:07→23:38)
[2023-02-12 07:40] VITALS: O2SAT 98
[2023-02-12 08:05] LABS: Basophils # (auto) 0 10 ^3/uL (0-0.2); Basophils % (auto) 0.5 % (0.0-2.0); Eosinophils # (auto) 0.1 10 ^3/uL (0-0.8); Eosinophils % (auto) 2.1 % (0.0-7.0); Hematocrit 33.2 % (41.0-53.0); Hemoglobin 11.3 g/dL (13.5-17.5); Lymphocytes # (auto) 1.5 10 ^3/uL (0.4-5.4); Mean Corpuscular Hemoglobin 29.8 pg (28.0-32.0); Mean Corpuscular Hgb Conc. 34.1 g/dL (32.0-36.0); Mean Corpuscular Volume 87.4 fL (80.0-100.0); Monocytes # (auto) 0.2 10 ^3/uL (0-1.3); Monocytes % (auto) 5.8 % (0.0-12.0); Neutrophils # (auto) 2.2 10 ^3/uL (1.6-8.6); Neutrophils % (auto) 53.6 % (37.0-80.0); Nucleated Red Blood Cells % 0.1 %; Red Cell Distribution Width 14.2 % (11.8-14.3)
[2023-02-12 08:21] LABS: Alanine Aminotransferase 27 U/L (7-40); Albumin 3.3 g/dL (3.2-4.8); Alkaline Phosphatase 168 U/L (46-116); Anion Gap 6.6 (5-15); Aspartate Aminotransferase 19 U/L (13-40); BUN/Creatinine Ratio 12.7 (10.0-20.0); Blood Urea Nitrogen 17 mg/dL (9-23); Calcium 8.1 mg/dL (8.5-10.1); Carbon Dioxide 27.4 mmol/L (20-30); Chloride 107 mmol/L (98-107); LDL Cholesterol 71 mg/dL (< 100); Potassium 4.1 mmol/L (3.5-5.1); Sodium 141 mmol/L (136-145); Triglycerides 176 mg/dL (< 150)
[2023-02-12 08:22] LABS: Bilirubin, Total 0.4 mg/dL (0.2-1.0); Cholesterol 151 mg/dL (< 200); HDL Cholesterol 53 mg/dL (40-59); Total Protein 5.4 g/dL (5.7-8.2)
[2023-02-12 08:26] LABS: Glucose 168 mg/dL (74-106)
[2023-02-12] MEDS: BACITRACIN-POLYMYXIN B TOPICAL OINT UD TOP SCH (09:40)
[2023-02-12] MEDS ORDERED: PANTOPRAZOLE 40 MG TAB PO SCH (10:00)
[2023-02-12] MEDS ORDERED: LISINOPRIL 5 MG TAB PO SCH (10:00)
[2023-02-12] MEDS ORDERED: FUROSEMIDE 40 MG TAB PO SCH (10:00)
[2023-02-12 22:55] VITALS: BP 118/68; PULSE 90; RESP 18; TEMP 98.1; O2SAT 97
[2023-02-12] MEDS: ATORVASTATIN 20 MG TAB PO SCH (23:37)
[2023-02-13 04:30] VITALS: BP 99/51; PULSE 83; RESP 18; TEMP 98.3; O2SAT 95
[2023-02-13 05:40] LABS: Anion Gap 5.3 (5-15); Basophils # (auto) 0 10 ^3/uL (0-0.2); Basophils % (auto) 0.3 % (0.0-2.0); Carbon Dioxide 28.7 mmol/L (20-30); Chloride 103 mmol/L (98-107); Eosinophils # (auto) 0.1 10 ^3/uL (0-0.8); Eosinophils % (auto) 1.5 % (0.0-7.0); Hematocrit 30.6 % (41.0-53.0); Hemoglobin 10.7 g/dL (13.5-17.5); Lymphocytes # (auto) 1.4 10 ^3/uL (0.4-5.4); Lymphocytes % (auto) 24.3 % (10.0-50.0); Mean Corpuscular Hemoglobin 30.1 pg (28.0-32.0); Mean Corpuscular Hgb Conc. 34.8 g/dL (32.0-36.0); Mean Corpuscular Volume 86.7 fL (80.0-100.0); Monocytes # (auto) 0.3 10 ^3/uL (0-1.3); Monocytes % (auto) 4.7 % (0.0-12.0); Neutrophils # (auto) 4.1 10 ^3/uL (1.6-8.6); Neutrophils % (auto) 69.2 % (37.0-80.0); Nucleated Red Blood Cells % 0.1 %; Potassium 4.4 mmol/L (3.5-5.1); Red Blood Cells 3.54 10^6/uL (4.5-5.90); Red Cell Distribution Width 14.3 % (11.8-14.3); Sodium 137 mmol/L (136-145); White Blood Cell 5.9 10^3/uL (4.4-10.8)
[2023-02-13 05:41] LABS: Calcium 7.7 mg/dL (8.5-10.1)
[2023-02-13 05:46] LABS: BUN/Creatinine Ratio 12.6 (10.0-20.0); Blood Urea Nitrogen 22 mg/dL (9-23); Glucose 183 mg/dL (74-106)
[2023-02-13] MEDS: ACCU-CHEK COMFORT CURVE STRIP VI SCH ×4 (06:41→22:28)
[2023-02-13] MEDS: InsuLIN REG 1unit/0.01ml Soln (100units/ml) SC SCH ×4 (06:51→23:00)
[2023-02-13] MEDS: GABAPENTIN 400 MG CAP PO SCH ×3 (07:08→22:27)
[2023-02-13 08:00] VITALS: PULSE 87; RESP 18; O2SAT 97
[2023-02-13] MEDS ORDERED: INSULIN LANTUS (GLARGINE) 1 /0.01ml (100units/ml) SC ONE (08:15)
[2023-02-13 09:00] VITALS: BP 120/74; PULSE 87; RESP 18; TEMP 97.8; O2SAT 97
[2023-02-13] MEDS: BACITRACIN-POLYMYXIN B TOPICAL OINT UD TOP SCH (10:00)
[2023-02-13] MEDS: HYDROcodone-ACET 10/325MG TAB PO PRN ×2 (11:45→22:27)
[2023-02-13 13:00] VITALS: BP 102/52; PULSE 88; RESP 18; TEMP 97.4; O2SAT 98
[2023-02-13 17:00] VITALS: BP 165/95; PULSE 84; RESP 18; TEMP 97.4; O2SAT 97
[2023-02-13 22:00] VITALS: BP 116/71; PULSE 96; RESP 20; TEMP 98.1; O2SAT 95
[2023-02-13] MEDS: ATORVASTATIN 20 MG TAB PO SCH (22:28)
[2023-02-14] VITALS (7 sets, daily range): BP systolic 115–165; BP diastolic 74–100; PULSE 85–92; RESP 14–85; TEMP 97.5–98.6; O2SAT 93–98
[2023-02-14] MEDS: HYDROcodone-ACET 10/325MG TAB PO PRN ×3 (04:51→22:29)
[2023-02-14] MEDS: GABAPENTIN 400 MG CAP PO SCH ×3 (05:00→22:29)
[2023-02-14 07:15] LABS: Basophils # (auto) 0 10 ^3/uL (0-0.2); Basophils % (auto) 0.3 % (0.0-2.0); Eosinophils # (auto) 0 10 ^3/uL (0-0.8); Eosinophils % (auto) 0.9 % (0.0-7.0); Hematocrit 30.8 % (41.0-53.0); Hemoglobin 10.5 g/dL (13.5-17.5); Lymphocytes % (auto) 18.6 % (10.0-50.0); Mean Corpuscular Hemoglobin 30.3 pg (28.0-32.0); Mean Corpuscular Hgb Conc. 33.9 g/dL (32.0-36.0); Mean Corpuscular Volume 89.4 fL (80.0-100.0); Monocytes # (auto) 0.2 10 ^3/uL (0-1.3); Monocytes % (auto) 4.4 % (0.0-12.0); Neutrophils # (auto) 4.2 10 ^3/uL (1.6-8.6); Neutrophils % (auto) 75.8 % (37.0-80.0); Red Blood Cells 3.45 10^6/uL (4.5-5.90); Red Cell Distribution Width 13.9 % (11.8-14.3); White Blood Cell 5.5 10^3/uL (4.4-10.8)
[2023-02-14 07:45] LABS: Anion Gap 4.4 (5-15); Carbon Dioxide 22.6 mmol/L (20-30); Chloride 106 mmol/L (98-107); Sodium 133 mmol/L (136-145)
[2023-02-14 07:51] LABS: BUN/Creatinine Ratio 15.9 (10.0-20.0); Blood Urea Nitrogen 23 mg/dL (9-23)
[2023-02-14] MEDS: INSULIN LANTUS (GLARGINE) 1 /0.01ml (100units/ml) SC SCH (07:54)
[2023-02-14 07:55] LABS: Glucose 459 mg/dL (74-106)
[2023-02-14 07:56] LABS: Potassium 5.6 mmol/L (3.5-5.1)
[2023-02-14] MEDS: InsuLIN REG 1unit/0.01ml Soln (100units/ml) SC SCH ×4 (07:57→22:28)
[2023-02-14] MEDS: ACCU-CHEK COMFORT CURVE STRIP VI SCH ×4 (07:57→22:27)
[2023-02-14 09:35] LABS: Hepatitis B Surface Antigen Negative (Negative)
[2023-02-14 09:57] LABS: Hepatitis C Antibody Negative (Negative)
[2023-02-14] MEDS: BACITRACIN-POLYMYXIN B TOPICAL OINT UD TOP SCH (10:00)
[2023-02-14] MEDS ORDERED: SODIUM ZIRCONIUM CYCL 10 GM PAK PO ONE (15:00)
[2023-02-14] MEDS: ATORVASTATIN 20 MG TAB PO SCH (22:29)
[2023-02-15] MEDS: HYDROcodone-ACET 10/325MG TAB PO PRN ×3 (03:56→21:20)
[2023-02-15 04:59] VITALS: BP 157/98; PULSE 83; RESP 16; TEMP 97.8; O2SAT 97
[2023-02-15 05:27] LABS: Chloride 107 mmol/L (98-107); Potassium 4.7 mmol/L (3.5-5.1); Sodium 136 mmol/L (136-145)
[2023-02-15 05:28] LABS: Anion Gap 4.1 (5-15); Calcium 7.9 mg/dL (8.7-10.4); Carbon Dioxide 24.9 mmol/L (20-30)
[2023-02-15 05:33] LABS: BUN/Creatinine Ratio 24.1 (10.0-20.0); Blood Urea Nitrogen 27 mg/dL (9-23)
[2023-02-15 05:35] LABS: Glucose 182 mg/dL (74-106)
[2023-02-15 06:14] LABS: Basophils # (auto) 0 10 ^3/uL (0-0.2); Basophils % (auto) 0.2 % (0.0-2.0); Eosinophils # (auto) 0.1 10 ^3/uL (0-0.8); Eosinophils % (auto) 1.6 % (0.0-7.0); Hematocrit 29.7 % (41.0-53.0); Lymphocytes # (auto) 1.2 10 ^3/uL (0.4-5.4); Lymphocytes % (auto) 35.3 % (10.0-50.0); Mean Corpuscular Hemoglobin 29.3 pg (28.0-32.0); Mean Corpuscular Hgb Conc. 33.8 g/dL (32.0-36.0); Mean Corpuscular Volume 86.6 fL (80.0-100.0); Monocytes # (auto) 0.2 10 ^3/uL (0-1.3); Monocytes % (auto) 7.3 % (0.0-12.0); Neutrophils # (auto) 1.9 10 ^3/uL (1.6-8.6); Neutrophils % (auto) 55.6 % (37.0-80.0); Nucleated Red Blood Cells % 0.2 %; Red Blood Cells 3.43 10^6/uL (4.5-5.90); Red Cell Distribution Width 14.2 % (11.8-14.3); White Blood Cell 3.4 10^3/uL (4.4-10.8)
[2023-02-15] MEDS: GABAPENTIN 400 MG CAP PO SCH ×3 (06:16→21:20)
[2023-02-15] MEDS: InsuLIN REG 1unit/0.01ml Soln (100units/ml) SC SCH ×4 (06:17→22:27)
[2023-02-15] MEDS: ACCU-CHEK COMFORT CURVE STRIP VI SCH ×4 (06:17→22:26)
[2023-02-15] MEDS: INSULIN LANTUS (GLARGINE) 1 /0.01ml (100units/ml) SC SCH (06:18)
[2023-02-15 09:00] VITALS: BP 150/94; PULSE 85; RESP 19; TEMP 97.5; O2SAT 99
[2023-02-15] MEDS: BACITRACIN-POLYMYXIN B TOPICAL OINT UD TOP SCH (12:21)
[2023-02-15 13:00] VITALS: BP 140/89; PULSE 89; RESP 19; TEMP 98.5; O2SAT 96
[2023-02-15 17:00] VITALS: BP 141/86; PULSE 87; RESP 19; TEMP 98; O2SAT 99
[2023-02-15] MEDS ORDERED: NAPR-746 PO (17:26)
[2023-02-15] MEDS: ATORVASTATIN 20 MG TAB PO SCH (21:20)
[2023-02-15 22:00] VITALS: BP 109/73; PULSE 85; RESP 22; TEMP 98.3; O2SAT 96
[2023-02-16] MEDS: HYDROcodone-ACET 10/325MG TAB PO PRN ×2 (01:09→09:28)
[2023-02-16 05:00] VITALS: BP 105/64; PULSE 82; RESP 22; TEMP 98.1; O2SAT 96
[2023-02-16] MEDS: GABAPENTIN 400 MG CAP PO SCH ×2 (05:20→14:43)
[2023-02-16] MEDS: INSULIN LANTUS (GLARGINE) 1 /0.01ml (100units/ml) SC SCH (06:16)
[2023-02-16] MEDS: ACCU-CHEK COMFORT CURVE STRIP VI SCH ×2 (06:16→11:30)
[2023-02-16] MEDS: InsuLIN REG 1unit/0.01ml Soln (100units/ml) SC SCH ×2 (06:17→11:30)
[2023-02-16 09:00] VITALS: BP 145/88; PULSE 87; RESP 18; TEMP 98.4; O2SAT 94
[2023-02-16] MEDS: BACITRACIN-POLYMYXIN B TOPICAL OINT UD TOP SCH (09:28)
[2023-02-16 13:00] VITALS: BP 141/80; PULSE 86; RESP 18; TEMP 98.3; O2SAT 96
[2023-02-16 16:45] VITALS: BP 125/75; PULSE 84; RESP 17; TEMP 98.5; O2SAT 98
[2023-02-17] MEDS ORDERED: BACITRACIN TOP OINT 1 UD PKG TOP SCH (10:00)
== END 2023-02-16 17:30 | disposition home health service (06) | DRG 199 ==
LOC: EDBD 13:51 → ER 13:51 → OVERFLOW 18:50 → CENTRAL 02-12 21:40
PROVIDERS: ADMIT Internal Medicine; ATTEND Student in an Organized Health Care Education/Training Program
DX: I16.0 Hypertensive urgency (principal); N17.0 Acute kidney failure with tubular necrosis; R07.89 Other chest pain; E11.41 Type 2 diabetes mellitus with diabetic mononeuropathy; I13.0 Hypertensive heart and chronic kidney disease with heart failure and stage 1 through stage 4 chronic kidney disease, or unspecified chronic kidney disease; I50.32 Chronic diastolic (congestive) heart failure; E83.51 Hypocalcemia; E11.22 Type 2 diabetes mellitus with diabetic chronic kidney disease; R55 Syncope and collapse; E11.65 Type 2 diabetes mellitus with hyperglycemia; E87.5 Hyperkalemia; E78.5 Hyperlipidemia, unspecified; N18.30 Chronic kidney disease, stage 3 unspecified; Z83.3 Family history of diabetes mellitus; Z90.49 Acquired absence of other specified parts of digestive tract; Z87.891 Personal history of nicotine dependence
CPT/HCPCS: 36415; 71045; 71250; 80048; 80053; 80061; 80307; 81001; 82652; 82962; 83036; 83735; 83880; 84484; 85025; 85610; 85730; 86803; 87086; 87340; 93005; 97163; G0378; J1815

== ENCOUNTER 2023-03-16 14:10 | Inpatient (IN) | payer MEDICAID ==
[~2023-03-16] VITALS: Ht 175.3 cm; Wt 66.0 kg
[~2023-03-16 14:10] MED LIST changes: +NAPR-746 PO
[2023-03-16] MEDS ORDERED: SODIUM CHLORIDE 0.9% 1,000 ML IV ONE ×2 (14:45→17:45)
[2023-03-16] MEDS ORDERED: DexAMETHasone INJECTION 10 MG in D5W 5% 50 ML IV ONE (15:00)
[2023-03-16 15:13] VITALS: PULSE 82; RESP 14; O2SAT 93
[2023-03-16 16:42] LABS: COVID19 ANTIGEN SOFIA FIA NEGATIVE (NEGATIVE); Rapid Strep A Screen-Throat Negative
[2023-03-16 16:45] LABS: Basophils # (auto) 0 10 ^3/uL (0-0.2); Basophils % (auto) 0.2 % (0.0-2.0); Eosinophils # (auto) 0 10 ^3/uL (0-0.8); Eosinophils % (auto) 0.2 % (0.0-7.0); Hematocrit 30.5 % (41.0-53.0); Hemoglobin 9.7 g/dL (13.5-17.5); Lymphocytes # (auto) 0.7 10 ^3/uL (0.4-5.4); Lymphocytes % (auto) 12.5 % (10.0-50.0); Mean Corpuscular Hgb Conc. 31.9 g/dL (32.0-36.0); Mean Corpuscular Volume 90.9 fL (80.0-100.0); Monocytes # (auto) 0.5 10 ^3/uL (0-1.3); Neutrophils # (auto) 4.4 10 ^3/uL (1.6-8.6); Neutrophils % (auto) 78.1 % (37.0-80.0); Nucleated Red Blood Cells % 0.2 %; Red Blood Cells 3.36 10^6/uL (4.5-5.90); Red Cell Distribution Width 14.3 % (11.8-14.3); White Blood Cell 5.7 10^3/uL (4.4-10.8)
[2023-03-16 17:01] LABS: Alanine Aminotransferase 12 U/L (7-40); Albumin 3.1 g/dL (3.2-4.8); Alkaline Phosphatase 165 U/L (46-116); Anion Gap 8 (5-15); Aspartate Aminotransferase 11 U/L (13-40); Blood Alcohol < 3.0 mg/dL (<10); Blood Urea Nitrogen 24 mg/dL (9-23); Calcium 7.4 mg/dL (8.7-10.4); Carbon Dioxide 20 mmol/L (20-30); Chloride 102 mmol/L (98-107); Lipase 27 U/L (12-53); Magnesium 1.8 mg/dL (1.6-2.6); Potassium 4.4 mmol/L (3.5-5.1)
[2023-03-16 17:02] LABS: Bilirubin, Total 0.7 mg/dL (0.2-1.0); Total Protein 5.2 g/dL (5.7-8.2)
[2023-03-16 17:04] LABS: Sodium 130 mmol/L (136-145)
[2023-03-16 17:07] LABS: Glucose 513 mg/dL (74-106)
[2023-03-16] MEDS ORDERED: MORPHINE SULFATE 4 MG/ML SYR/VIAL IV ONE (17:45)
[2023-03-16] MEDS ORDERED: INSULIN LISPRO (HUMAN) 100 UNITS/ML ML SC ONE (17:45)
[2023-03-16] MEDS ORDERED: CALCIUM GLUC 1,000mg/50ml-NS 50 ML IV ONE (18:30)
[2023-03-16 19:04] LABS: Urine Bacteria NONE SEEN /hpf (None Seen); Urine Blood TRACE /uL (Negative); Urine Clarity Clear (Clear); Urine Color Colorless (Yellow); Urine Protein, UAD 1+ (Negative); Urine Specific Gravity 1.011 (1.001-1.035); Urine Urobilinogen Normal (Negative); Urine WBC 1 /hpf (0 - 3)
[2023-03-16 19:18] LABS: Amphetamine Screen, Urine Neg (NEGATIVE); Barbiturate Scree,Urine Neg (NEGATIVE); Benzodiazephine Screen, Urine Neg (NEGATIVE); Cannabinoid Screen, Urine Neg (NEGATIVE); Cocaine Screen, Urine Neg (NEGATIVE); Opiate Scree,Urine Neg (NEGATIVE); Phencyclidine Screen, Urine Neg (NEGATIVE)
[2023-03-16 19:38] LABS: Base Excess -6.8 mmol/L (-2.0-2.0)
[2023-03-16 19:42] VITALS: PULSE 76; RESP 18; O2SAT 94
[2023-03-16] MEDS: SODIUM CHLORIDE 0.9% 1,000 ML IV SCH (21:00)
[2023-03-16] MEDS ORDERED: DEXTROSE (50%) 50ML SYRG IV PRN (21:00)
[2023-03-16] MEDS ORDERED: ACETAMINOPHEN 325 MG TAB PO PRN (21:00)
[2023-03-16] MEDS ORDERED: MORPHINE SULFATE INJ 2 MG/ml SYRG IV PRN (21:00)
[2023-03-16] MEDS ORDERED: ONDANSETRON HCL 4 MG/2 ML VIAL IV PRN (21:00)
[2023-03-16] MEDS ORDERED: DOCUSATE SOD 100 MG CAP PO PRN (21:00)
[2023-03-16] MEDS ORDERED: NITROGLYCERIN 0.4 MG SL TAB SL PRN (21:00)
[2023-03-16] MEDS: HYDROcodone-ACET 5/325MG TAB PO PRN (22:03)
[2023-03-17] MEDS: ACCU-CHEK COMFORT CURVE STRIP VI SCH ×5 (00:20→14:48)
[2023-03-17] MEDS ORDERED: INSULIN LANTUS (GLARGINE) 1 /0.01ml (100units/ml) SC ONE (00:30)
[2023-03-17] MEDS: InsuLIN REG 1unit/0.01ml Soln (100units/ml) SC SCH ×5 (00:47→18:05)
[2023-03-17] MEDS: HYDROcodone-ACET 5/325MG TAB PO PRN ×3 (04:57→20:24)
[2023-03-17 05:10] LABS: Basophils # (auto) 0 10 ^3/uL (0-0.2); Basophils % (auto) 0.1 % (0.0-2.0); Eosinophils # (auto) 0 10 ^3/uL (0-0.8); Hematocrit 35.2 % (41.0-53.0); Hemoglobin 11.4 g/dL (13.5-17.5); Lymphocytes # (auto) 0.5 10 ^3/uL (0.4-5.4); Lymphocytes % (auto) 8.2 % (10.0-50.0); Mean Corpuscular Hemoglobin 29.3 pg (28.0-32.0); Mean Corpuscular Hgb Conc. 32.2 g/dL (32.0-36.0); Mean Corpuscular Volume 90.9 fL (80.0-100.0); Monocytes # (auto) 0.3 10 ^3/uL (0-1.3); Monocytes % (auto) 4.9 % (0.0-12.0); Neutrophils # (auto) 5.4 10 ^3/uL (1.6-8.6); Neutrophils % (auto) 86.8 % (37.0-80.0); Red Blood Cells 3.88 10^6/uL (4.5-5.90); Red Cell Distribution Width 14.3 % (11.8-14.3); White Blood Cell 6.2 10^3/uL (4.4-10.8)
[2023-03-17 05:35] LABS: Alanine Aminotransferase 12 U/L (7-40); Albumin 3.5 g/dL (3.2-4.8); Alkaline Phosphatase 190 U/L (46-116); Anion Gap 8 (5-15); Aspartate Aminotransferase 12 U/L (13-40); BUN/Creatinine Ratio 10.9 (10.0-20.0); Bilirubin, Total 0.4 mg/dL (0.2-1.0); Blood Urea Nitrogen 17 mg/dL (9-23); Calcium 8.2 mg/dL (8.7-10.4); Carbon Dioxide 18 mmol/L (20-30); Chloride 106 mmol/L (98-107); Potassium 4.3 mmol/L (3.5-5.1); Sodium 132 mmol/L (136-145)
[2023-03-17 05:42] LABS: Glucose 407 mg/dL (74-106)
[2023-03-17] MEDS: SODIUM CHLORIDE 0.9% 1,000 ML IV SCH (07:00)
[2023-03-17 08:53] VITALS: PULSE 71; RESP 21; O2SAT 95
[2023-03-17] MEDS: ASPirin 81 mg TAB PO SCH (10:23)
[2023-03-17] MEDS: MULTIPLE VITAMIN TAB PO SCH (10:23)
[2023-03-17] MEDS: INSULIN LANTUS (GLARGINE) 1 /0.01ml (100units/ml) SC SCH ×2 (10:24→22:01)
[2023-03-17] MEDS ORDERED: cefTRIAXone 1GM/50ML D5W 50 ML IV ONE (11:00)
[2023-03-17] MEDS ORDERED: MORPHINE SULFATE INJ 2 MG/ml SYRG IV PRN (11:15)
[2023-03-17] MEDS ORDERED: AZITHROMYCIN 500MG/ 250ML 250 ML IV ONE (12:00)
[2023-03-17] MEDS: guaiFENesin 200 MG/10 ML UD PO PRN (14:45)
[2023-03-17 18:41] VITALS: PULSE 75; RESP 20; O2SAT 95
[2023-03-17 18:46] VITALS: BP 123/78; PULSE 75; RESP 20; TEMP 97.6; O2SAT 95
[2023-03-17 20:00] VITALS: PULSE 78; PULSE 84; RESP 14; O2SAT 98
[2023-03-17] MEDS: TEMAZEPAM 15 MG CAP PO PRN (21:55)
[2023-03-17 22:00] VITALS: BP 142/80; PULSE 84; RESP 14; TEMP 97.8; O2SAT 98
[2023-03-18] VITALS (9 sets, daily range): BP systolic 110–168; BP diastolic 59–94; PULSE 71–99; RESP 12–22; TEMP 97–98.1; O2SAT 89–100
[2023-03-18] MEDS: ACCU-CHEK COMFORT CURVE STRIP VI SCH ×6 (00:18→22:00)
[2023-03-18] MEDS: InsuLIN REG 1unit/0.01ml Soln (100units/ml) SC SCH ×4 (00:19→17:00)
[2023-03-18] MEDS: HYDROcodone-ACET 5/325MG TAB PO PRN ×5 (00:36→21:12)
[2023-03-18 06:24] LABS: Chloride 109 mmol/L (98-107); Potassium 3.8 mmol/L (3.5-5.1); Sodium 139 mmol/L (136-145)
[2023-03-18 06:26] LABS: Calcium 7.9 mg/dL (8.5-10.1)
[2023-03-18 06:30] LABS: BUN/Creatinine Ratio 14.9 (10.0-20.0); Blood Urea Nitrogen 20 mg/dL (9-23)
[2023-03-18 06:43] LABS: Glucose 112 mg/dL (74-106)
[2023-03-18 07:01] LABS: Anion Gap 8 (5-15); Carbon Dioxide 22 mmol/L (20-30)
[2023-03-18] MEDS: ASPirin 81 mg TAB PO SCH (09:52)
[2023-03-18] MEDS: MULTIPLE VITAMIN TAB PO SCH (09:52)
[2023-03-18] MEDS: cefTRIAXone 1GM/50ML D5W 50 ML IV SCH (09:53)
[2023-03-18] MEDS ORDERED: AZITHROMYCIN 500MG/ 250ML 250 ML IV SCH (10:00)
[2023-03-18] MEDS: INSULIN LANTUS (GLARGINE) 1 /0.01ml (100units/ml) SC SCH (10:04)
[2023-03-18] MEDS ORDERED: DEXTROSE (50%) 50ML SYRG IV PRN (12:00)
[2023-03-18] MEDS: GABAPENTIN 400 MG CAP PO SCH ×2 (14:50→21:11)
[2023-03-18] MEDS: guaiFENesin 200 MG/10 ML UD PO PRN ×2 (17:19→23:43)
[2023-03-18] MEDS ORDERED: ALBUTEROL SULF 2.5 MG/0.5ML(0.5%) NEB SOLN NEB PRN (20:00)
[2023-03-18] MEDS ORDERED: IPRATROPIUM BROM 0.5 MG/2.5ML INH SOL NEB PRN (20:00)
[2023-03-18] MEDS ORDERED: INSULIN LANTUS (GLARGINE) 1 /0.01ml (100units/ml) SC SCH (22:00)
[2023-03-18] MEDS ORDERED: InsuLIN REG 1unit/0.01ml Soln (100units/ml) SC SCH (22:00)
[2023-03-18] MEDS: TEMAZEPAM 15 MG CAP PO PRN (23:41)
[2023-03-19] VITALS (11 sets, daily range): BP systolic 132–179; BP diastolic 74–93; PULSE 77–101; RESP 16–22; TEMP 97.4–97.6; O2SAT 75–100
[2023-03-19] MEDS: ALBUTEROL SULF 2.5 MG/0.5ML(0.5%) NEB SOLN NEB SCH ×3 (00:23→12:00)
[2023-03-19] MEDS: IPRATROPIUM BROM 0.5 MG/2.5ML INH SOL NEB SCH ×3 (00:23→12:00)
[2023-03-19] MEDS: GABAPENTIN 400 MG CAP PO SCH ×2 (06:25→14:55)
[2023-03-19] MEDS: InsuLIN REG 1unit/0.01ml Soln (100units/ml) SC SCH ×2 (06:26→12:32)
[2023-03-19] MEDS: ACCU-CHEK COMFORT CURVE STRIP VI SCH ×2 (06:34→12:30)
[2023-03-19] MEDS ORDERED: AZITHROMYCIN 250 MG TAB PO SCH (10:00)
[2023-03-19] MEDS ORDERED: LISINOPRIL 10 MG TAB PO SCH (10:00)
[2023-03-19] MEDS: MULTIPLE VITAMIN TAB PO SCH (10:23)
[2023-03-19] MEDS: ASPirin 81 mg TAB PO SCH (10:23)
[2023-03-19] MEDS: cefTRIAXone 1GM/50ML D5W 50 ML IV SCH (10:24)
[2023-03-19] MEDS: guaiFENesin 200 MG/10 ML UD PO PRN ×2 (11:07→15:07)
[2023-03-19] MEDS: HYDROcodone-ACET 5/325MG TAB PO PRN ×2 (11:15→15:07)
[2023-03-19] MEDS ORDERED: INSLANTI SC (11:50)
[2023-03-19] MEDS ORDERED: LISI10TA34 PO (11:50)
[2023-03-19] MEDS ORDERED: AZITTAB PO (11:50)
[2023-03-19] MEDS ORDERED: EMPA1TAB3 PO (11:50)
[2023-03-20 19:06] LABS: Mycoplasma pneumoniae IgG Ab 351 U/mL (0-99); Mycoplasma pneumoniae IgM Ab <770 U/mL (0-769)
== END 2023-03-19 18:35 | disposition home or self-care (01) | DRG 420 ==
LOC: ER 14:10 → TELE 21:06 → TELE-WESTW 03-17 18:12
PROVIDERS: ADMIT Internal Medicine; ATTEND Internal Medicine
DX: E11.65 Type 2 diabetes mellitus with hyperglycemia (principal); N17.0 Acute kidney failure with tubular necrosis; J15.69 Pneumonia due to other Gram-negative bacteria; D69.6 Thrombocytopenia, unspecified; I13.0 Hypertensive heart and chronic kidney disease with heart failure and stage 1 through stage 4 chronic kidney disease, or unspecified chronic kidney disease; I50.22 Chronic systolic (congestive) heart failure; E83.51 Hypocalcemia; D63.1 Anemia in chronic kidney disease; J15.9 Unspecified bacterial pneumonia; E11.22 Type 2 diabetes mellitus with diabetic chronic kidney disease; J02.8 Acute pharyngitis due to other specified organisms; E87.1 Hypo-osmolality and hyponatremia; Z20.822 Contact with and (suspected) exposure to COVID-19; E87.8 Other disorders of electrolyte and fluid balance, not elsewhere classified; N18.2 Chronic kidney disease, stage 2 (mild); E78.5 Hyperlipidemia, unspecified; Z83.3 Family history of diabetes mellitus; Z90.49 Acquired absence of other specified parts of digestive tract
CPT/HCPCS: 36415; 36600; 71045; 76775; 80048; 80053; 80307; 80320; 81001; 82805; 82962; 83036; 83690; 83735; 83880; 84484; 85025; 86738; 87070; 87426; 87880; 93005; 94640; 96365; 96375; 97110; 97116; 97163; 97530; G0378; J0696; J1100; J1815; J7060

== ENCOUNTER 2023-04-22 11:51 | Emergency (ER) | payer MEDICAID ==
[~2023-04-22] VITALS: Ht 175.3 cm; Wt 65.9 kg
[~2023-04-22 11:51] MED LIST changes: +AZITTAB PO; +EMPA1TAB3 PO; +INSLANTI SC; +LISI10TA34 PO
[2023-04-22] MEDS ORDERED: KETOROLAC TROMETH 30 MG/ML 1ML VIAL IM ONE (17:00)
[2023-04-22] MEDS ORDERED: PROMETHAZINE HCL 25 MG/ML 1ML IM ONE (17:00)
[2023-04-22 17:37] VITALS: BP 163/102; PULSE 92; RESP 16; O2SAT 97
== END 2023-04-22 18:03 | disposition home or self-care (01) ==
LOC: EDBD 11:51 → ER 11:51
DX: R51.9 Headache, unspecified (principal); I11.0 Hypertensive heart disease with heart failure; I50.9 Heart failure, unspecified; E11.9 Type 2 diabetes mellitus without complications; E78.5 Hyperlipidemia, unspecified; Z98.890 Other specified postprocedural states; Z87.891 Personal history of nicotine dependence; Z79.84 Long term (current) use of oral hypoglycemic drugs; Z79.4 Long term (current) use of insulin; Z79.899 Other long term (current) drug therapy
CPT/HCPCS: 82962; 96372; 99284; J1885; J2550

== ENCOUNTER 2023-06-04 14:58 | Emergency (ER) | payer MEDICAID ==
[~2023-06-04] VITALS: Ht 175.3 cm; Wt 68.0 kg
[2023-06-04 16:28] LABS: Basophils # (auto) 0 10 ^3/uL (0-0.2); Basophils % (auto) 0.3 % (0.0-2.0); Eosinophils # (auto) 0.1 10 ^3/uL (0-0.8); Eosinophils % (auto) 1.3 % (0.0-7.0); Hematocrit 33.8 % (41.0-53.0); Hemoglobin 11.3 g/dL (13.5-17.5); Lymphocytes # (auto) 1.1 10 ^3/uL (0.4-5.4); Lymphocytes % (auto) 25.3 % (10.0-50.0); Mean Corpuscular Hemoglobin 29.4 pg (28.0-32.0); Mean Corpuscular Hgb Conc. 33.5 g/dL (32.0-36.0); Mean Corpuscular Volume 87.6 fL (80.0-100.0); Monocytes # (auto) 0.3 10 ^3/uL (0-1.3); Monocytes % (auto) 5.8 % (0.0-12.0); Neutrophils % (auto) 67.3 % (37.0-80.0); Nucleated Red Blood Cells % 0.1 %; Red Blood Cells 3.86 10^6/uL (4.5-5.90); Red Cell Distribution Width 15.3 % (11.8-14.3); White Blood Cell 4.5 10^3/uL (4.4-10.8)
[2023-06-04 16:46] LABS: Alanine Aminotransferase 26 U/L (7-40); Albumin 3.3 g/dL (3.2-4.8); Alkaline Phosphatase 159 U/L (46-116); Anion Gap 8 (5-15); Aspartate Aminotransferase 15 U/L (13-40); BUN/Creatinine Ratio 16.9 (10.0-20.0); Blood Urea Nitrogen 35 mg/dL (9-23); Calcium 7.8 mg/dL (8.7-10.4); Carbon Dioxide 19 mmol/L (20-30); Chloride 111 mmol/L (98-107); Glucose 172 mg/dL (74-106); Potassium 5.2 mmol/L (3.5-5.1); Sodium 138 mmol/L (136-145)
[2023-06-04 16:47] LABS: Bilirubin, Total 0.4 mg/dL (0.2-1.0); Total Protein 5.1 g/dL (5.7-8.2)
[2023-06-04] MEDS ORDERED: ALBUTEROL SULF 2.5 MG/0.5ML(0.5%) NEB SOLN NEB ONE (18:30)
[2023-06-04] MEDS ORDERED: ALBUTEROL SULF 2.5 MG/0.5ML(0.5%) NEB SOLN ONE (18:45)
[2023-06-04 19:40] VITALS: PULSE 97; RESP 12; O2SAT 96
[2023-06-04 21:40] LABS: Urine Bacteria NONE SEEN /hpf (None Seen); Urine Blood Negative /uL (Negative); Urine Clarity Clear (Clear); Urine Color Yellow (Yellow); Urine Hyaline Cast FEW /lpf (0 - 2); Urine Protein, UAD 2+ (Negative); Urine Specific Gravity 1.021 (1.001-1.035); Urine Urobilinogen Normal (Negative); Urine WBC 1 /hpf (0 - 3); Urine pH 5.5 (5.0-8.0)
[2023-06-04] MEDS ORDERED: ACETAMINOPHEN 325 MG TAB PO ONE (22:30)
[2023-06-05 07:49] VITALS: BP 166/44; PULSE 92; RESP 18; TEMP 97.8; O2SAT 97
== END 2023-06-05 07:50 | disposition home or self-care (01) ==
LOC: EDBD 14:58 → EDUNIT# 14:58 → ER 14:58
DX: I95.9 Hypotension, unspecified (principal); I13.0 Hypertensive heart and chronic kidney disease with heart failure and stage 1 through stage 4 chronic kidney disease, or unspecified chronic kidney disease; E11.22 Type 2 diabetes mellitus with diabetic chronic kidney disease; N18.9 Chronic kidney disease, unspecified; I50.9 Heart failure, unspecified; E78.5 Hyperlipidemia, unspecified; I25.10 Atherosclerotic heart disease of native coronary artery without angina pectoris; Z90.49 Acquired absence of other specified parts of digestive tract; Z87.891 Personal history of nicotine dependence; Z79.4 Long term (current) use of insulin; Z79.2 Long term (current) use of antibiotics; Z79.899 Other long term (current) drug therapy
CPT/HCPCS: 36415; 71045; 80053; 81001; 83735; 83880; 84484; 85025; 93005; 94640

== ENCOUNTER 2023-07-19 15:41 | Inpatient (IN) | payer MEDICAID ==
[~2023-07-19] VITALS: Ht 175.3 cm; Wt 63.7 kg
[2023-07-19 16:58] VITALS: PULSE 93; RESP 16; O2SAT 98
[2023-07-19] MEDS: SODIUM CHLORIDE 0.9% 500 ML IV ONE (17:05)
[2023-07-19 17:16] LABS: Basophils # (auto) 0 10 ^3/uL (0-0.2); Basophils % (auto) 0.3 % (0.0-2.0); Eosinophils # (auto) 0.1 10 ^3/uL (0-0.8); Eosinophils % (auto) 1.7 % (0.0-7.0); Hematocrit 34.8 % (41.0-53.0); Hemoglobin 11.6 g/dL (13.5-17.5); Lymphocytes # (auto) 1.5 10 ^3/uL (0.4-5.4); Lymphocytes % (auto) 24.1 % (10.0-50.0); Mean Corpuscular Hemoglobin 29.1 pg (28.0-32.0); Mean Corpuscular Hgb Conc. 33.4 g/dL (32.0-36.0); Mean Corpuscular Volume 87.3 fL (80.0-100.0); Monocytes # (auto) 0.4 10 ^3/uL (0-1.3); Neutrophils % (auto) 66.9 % (37.0-80.0); Nucleated Red Blood Cells % 0.1 %; Red Blood Cells 3.99 10^6/uL (4.5-5.90); Red Cell Distribution Width 14.4 % (11.8-14.3)
[2023-07-19 17:34] LABS: Alanine Aminotransferase 13 U/L (7-40); Albumin 3.5 g/dL (3.2-4.8); Alkaline Phosphatase 159 U/L (46-116); Anion Gap 7 (5-15); Aspartate Aminotransferase < 8 U/L (13-40); Calcium 8.3 mg/dL (8.7-10.4); Carbon Dioxide 26 mmol/L (20-30); Chloride 104 mmol/L (98-107); Glucose 176 mg/dL (74-106); Magnesium 2.5 mg/dL (1.6-2.6); Potassium 4.9 mmol/L (3.5-5.1); Sodium 137 mmol/L (136-145)
[2023-07-19 17:35] LABS: Bilirubin, Total 0.3 mg/dL (0.2-1.0); Total Protein 5.8 g/dL (5.7-8.2)
[2023-07-19 18:33] LABS: BUN/Creatinine Ratio 16.1 (10.0-20.0); Blood Urea Nitrogen 36 mg/dL (9-23)
[2023-07-19 18:49] LABS: Urine Bacteria NONE SEEN /hpf (None Seen); Urine Blood Negative /uL (Negative); Urine Clarity Clear (Clear); Urine Color Yellow (Yellow); Urine Protein, UAD 2+ (Negative); Urine Specific Gravity 1.023 (1.001-1.035); Urine Urobilinogen Normal (Negative); Urine WBC 1 /hpf (0 - 3)
[2023-07-19] MEDS: ONDANSETRON HCL 4 MG/2 ML VIAL IV ONE (18:55)
[2023-07-19] MEDS: MORPHINE SULFATE INJ 2 MG/ml SYRG IV ONE (18:55)
[2023-07-19 19:55] VITALS: PULSE 79; RESP 10; O2SAT 100
[2023-07-19] MEDS ORDERED: ACETAMINOPHEN 325 MG TAB PO PRN (21:00)
[2023-07-19] MEDS ORDERED: DEXTROSE (50%) 50ML SYRG IV PRN (21:00)
[2023-07-19] MEDS ORDERED: ALBUTEROL SULF 2.5 MG/0.5ML(0.5%) NEB SOLN NEB PRN (21:00)
[2023-07-19 21:32] VITALS: BP 131/85; PULSE 80; RESP 18; TEMP 97.1; O2SAT 98
[2023-07-19] MEDS: HYDROcodone-ACET 5/325MG TAB PO PRN (21:35)
[2023-07-19] MEDS: ACCU-CHEK COMFORT CURVE STRIP VI SCH (21:58)
[2023-07-19] MEDS: SODIUM CHLOR 0.9% PF (SALINE LOCK) 10ML VIAL/SYR IV SCH (22:05)
[2023-07-19] MEDS: InsuLIN REG 1unit/0.01ml Soln (100units/ml) SC SCH (22:06)
[2023-07-19] MEDS: CARVEDILOL 12.5 MG TAB PO SCH (22:08)
[2023-07-19] MEDS ORDERED: MORPHINE SULFATE INJ 2 MG/ml SYRG IV PRN (22:15)
[2023-07-19] MEDS ORDERED: NITROGLYCERIN 0.4 MG SL TAB SL PRN (22:15)
[2023-07-19] MEDS: ONDANSETRON HCL 4 MG/2 ML VIAL IV PRN (23:53)
[2023-07-19] MEDS: MORPHINE SULFATE INJ 2 MG/ml SYRG IV PRN (23:54)
[2023-07-20 05:12] LABS: Basophils # (auto) 0 10 ^3/uL (0-0.2); Basophils % (auto) 0.5 % (0.0-2.0); Eosinophils # (auto) 0.1 10 ^3/uL (0-0.8); Eosinophils % (auto) 1.8 % (0.0-7.0); Hematocrit 34.8 % (41.0-53.0); Hemoglobin 11.4 g/dL (13.5-17.5); Lymphocytes # (auto) 1.5 10 ^3/uL (0.4-5.4); Mean Corpuscular Hemoglobin 29.3 pg (28.0-32.0); Mean Corpuscular Hgb Conc. 32.8 g/dL (32.0-36.0); Mean Corpuscular Volume 89.4 fL (80.0-100.0); Monocytes # (auto) 0.3 10 ^3/uL (0-1.3); Monocytes % (auto) 6.6 % (0.0-12.0); Neutrophils # (auto) 2.7 10 ^3/uL (1.6-8.6); Neutrophils % (auto) 58.1 % (37.0-80.0); Red Cell Distribution Width 14.5 % (11.8-14.3); White Blood Cell 4.7 10^3/uL (4.4-10.8)
[2023-07-20 05:43] LABS: Alanine Aminotransferase 15 U/L (7-40); Albumin 3.2 g/dL (3.2-4.8); Alkaline Phosphatase 147 U/L (46-116); Anion Gap 7 (5-15); Aspartate Aminotransferase 14 U/L (13-40); BUN/Creatinine Ratio 10.8 (10.0-20.0); Bilirubin, Total 0.2 mg/dL (0.2-1.0); Blood Urea Nitrogen 21 mg/dL (9-23); Calcium 7.8 mg/dL (8.7-10.4); Carbon Dioxide 21 mmol/L (20-30); Chloride 106 mmol/L (98-107); Sodium 134 mmol/L (136-145)
[2023-07-20 05:44] LABS: Total Protein 5.4 g/dL (5.7-8.2)
[2023-07-20 05:53] VITALS: BP 163/95; PULSE 69; RESP 18; TEMP 97.3; O2SAT 100
[2023-07-20 06:00] VITALS: O2SAT 99
[2023-07-20 06:11] LABS: Glucose 343 mg/dL (74-106)
[2023-07-20] MEDS: InsuLIN REG 1unit/0.01ml Soln (100units/ml) SC SCH ×3 (06:31→21:04)
[2023-07-20 08:00] VITALS: PULSE 73
[2023-07-20 10:00] VITALS: O2SAT 100
[2023-07-20] MEDS: FUROSEMIDE 40 MG/4 ML VIAL IV SCH (10:00)
[2023-07-20] MEDS: ASPirin 81 mg TAB PO SCH (10:51)
[2023-07-20] MEDS: ACCU-CHEK COMFORT CURVE STRIP VI SCH (16:56)
[2023-07-20] MEDS: InsuLIN REG 1unit/0.01ml Soln (100units/ml) SC ONE (16:57)
[2023-07-20 17:00] VITALS: BP 140/85; PULSE 74; RESP 18; TEMP 98.4; O2SAT 97
[2023-07-20] MEDS ORDERED: DEXTROSE (50%) 50ML SYRG IV PRN (17:00)
[2023-07-20 20:00] VITALS: PULSE 88; PULSE 93; RESP 18
[2023-07-21] VITALS (9 sets, daily range): BP systolic 102–176; BP diastolic 62–98; PULSE 75–82; RESP 16–20; TEMP 97.4–98.1; O2SAT 97–100
[2023-07-21 01:15] LABS: Urine Bacteria FEW /hpf (None Seen); Urine Blood Negative /uL (Negative); Urine Clarity Clear (Clear); Urine Protein, UAD 2+ (Negative); Urine Specific Gravity 1.021 (1.001-1.035); Urine Urobilinogen Normal (Negative); Urine WBC 1 /hpf (0 - 3)
[2023-07-21 01:22] LABS: Protein, Urine 102.2 mg/dL (0.0-11.9)
[2023-07-21 01:25] LABS: Creatinine, Urine 52.79 mg/dL (30.0-125.0)
[2023-07-21 01:53] LABS: Urine Color Straw (Yellow)
[2023-07-21] MEDS: DOCUSATE SOD 100 MG CAP PO PRN (04:43)
[2023-07-21 06:54] LABS: Calcium 7.7 mg/dL (8.7-10.4); Chloride 106 mmol/L (98-107); Potassium 5.2 mmol/L (3.5-5.1); Sodium 134 mmol/L (136-145)
[2023-07-21 06:55] LABS: Anion Gap 5 (5-15); Carbon Dioxide 23 mmol/L (20-30)
[2023-07-21 07:00] LABS: BUN/Creatinine Ratio 14.3 (10.0-20.0); Blood Urea Nitrogen 28 mg/dL (9-23); Glucose 319 mg/dL (74-106)
[2023-07-21] MEDS ORDERED: VANCOMYCIN PER PHARMACY 0 MG IV SCH (13:15)
[2023-07-21] MEDS: VANCOMYCIN 1GM/200ML 200 ML IV ONE (14:36)
[2023-07-22] VITALS (8 sets, daily range): BP systolic 103–160; BP diastolic 61–93; PULSE 76–83; RESP 18–20; TEMP 97.3–98.3; O2SAT 95–99
[2023-07-22] MEDS: hydrALAZINE HCL 20 MG/ML VL IV ONE (05:10)
[2023-07-22 06:27] LABS: Basophils # (auto) 0 10 ^3/uL (0-0.2); Basophils % (auto) 0.3 % (0.0-2.0); Eosinophils # (auto) 0.1 10 ^3/uL (0-0.8); Eosinophils % (auto) 2.3 % (0.0-7.0); Hematocrit 32.4 % (41.0-53.0); Hemoglobin 10.6 g/dL (13.5-17.5); Lymphocytes # (auto) 1.1 10 ^3/uL (0.4-5.4); Lymphocytes % (auto) 28.2 % (10.0-50.0); Mean Corpuscular Hgb Conc. 32.7 g/dL (32.0-36.0); Mean Corpuscular Volume 88.7 fL (80.0-100.0); Monocytes # (auto) 0.3 10 ^3/uL (0-1.3); Monocytes % (auto) 8.6 % (0.0-12.0); Neutrophils # (auto) 2.4 10 ^3/uL (1.6-8.6); Neutrophils % (auto) 60.6 % (37.0-80.0); Red Blood Cells 3.65 10^6/uL (4.5-5.90); Red Cell Distribution Width 14.7 % (11.8-14.3); White Blood Cell 3.9 10^3/uL (4.4-10.8)
[2023-07-22 06:35] LABS: Calcium 7.9 mg/dL (8.7-10.4)
[2023-07-22 06:40] LABS: BUN/Creatinine Ratio 18.2 (10.0-20.0)
[2023-07-22 06:41] LABS: Albumin 3.3 g/dL (3.2-4.8)
[2023-07-22 06:43] LABS: Phosphorus 4.3 mg/dL (2.4-5.1)
[2023-07-22] MEDS: ENOXAPARIN SOD 30 MG/0.3 ML SYRINGE SC SCH (09:03)
[2023-07-22 09:21] LABS: Hepatitis B Surface Antigen Negative (Negative)
[2023-07-22 09:42] LABS: Hepatitis C Antibody Negative (Negative)
[2023-07-22] MEDS: VANCOMYCIN 750mg/150ml 150 ML IV SCH (13:33)
[2023-07-23] VITALS (8 sets, daily range): BP systolic 108–144; BP diastolic 68–89; PULSE 77–89; RESP 14–20; TEMP 97.4–98.6; O2SAT 95–99
[2023-07-23] MEDS ORDERED: GABA-339 PO (15:09)
[2023-07-23] MEDS ORDERED: METF-929 PO (15:09)
[2023-07-23] MEDS ORDERED: ATO40T PO (15:31)
[2023-07-23] MEDS ORDERED: RAME8TAB17 PO (15:31)
[2023-07-23] MEDS ORDERED: AMLO1TAB22 PO (15:31)
[2023-07-23] MEDS ORDERED: PIO30T PO (15:31)
[2023-07-23] MEDS ORDERED: TRAZ-227 PO (15:31)
[2023-07-23] MEDS ORDERED: LOSA50TA46 PO (15:31)
[2023-07-23] MEDS ORDERED: VENL1TAB97 PO (15:31)
[2023-07-23] MEDS ORDERED: PANT40TA2 PO (15:31)
[2023-07-23] MEDS ORDERED: NIFE1TAB31 PO (15:31)
[2023-07-23] MEDS ORDERED: INSU1INJ19 SC (15:31)
[2023-07-24] VITALS (8 sets, daily range): BP systolic 96–155; BP diastolic 55–86; PULSE 71–79; RESP 16–18; TEMP 97.3–98; O2SAT 97–98
[2023-07-24] MEDS: TEMAZEPAM 15 MG CAP PO ONE (00:41)
[2023-07-24 06:36] LABS: Anion Gap 6 (5-15); Carbon Dioxide 24 mmol/L (20-30); Chloride 106 mmol/L (98-107); Potassium 4.9 mmol/L (3.5-5.1); Sodium 136 mmol/L (136-145)
[2023-07-24 06:37] LABS: Calcium 8.5 mg/dL (8.5-10.1)
[2023-07-24 06:42] LABS: BUN/Creatinine Ratio 16.9 (10.0-20.0); Blood Urea Nitrogen 29 mg/dL (9-23); Glucose 301 mg/dL (74-106)
[2023-07-24] MEDS: FUROSEMIDE 20 MG/2 ML VIAL IV SCH (08:44)
[2023-07-24 12:17] LABS: Basophils # (auto) 0 10 ^3/uL (0-0.2); Basophils % (auto) 0.4 % (0.0-2.0); Eosinophils # (auto) 0.1 10 ^3/uL (0-0.8); Eosinophils % (auto) 2.1 % (0.0-7.0); Hematocrit 33.7 % (41.0-53.0); Hemoglobin 10.8 g/dL (13.5-17.5); Lymphocytes # (auto) 1.1 10 ^3/uL (0.4-5.4); Lymphocytes % (auto) 28.2 % (10.0-50.0); Mean Corpuscular Hgb Conc. 32.1 g/dL (32.0-36.0); Mean Corpuscular Volume 90.3 fL (80.0-100.0); Monocytes # (auto) 0.4 10 ^3/uL (0-1.3); Monocytes % (auto) 9.6 % (0.0-12.0); Neutrophils # (auto) 2.3 10 ^3/uL (1.6-8.6); Neutrophils % (auto) 59.7 % (37.0-80.0); Nucleated Red Blood Cells % 0.1 %; Red Blood Cells 3.73 10^6/uL (4.5-5.90); Red Cell Distribution Width 14.9 % (11.8-14.3); White Blood Cell 3.9 10^3/uL (4.4-10.8)
[2023-07-24 12:19] LABS: COVID19 ANTIGEN SOFIA FIA NEGATIVE (NEGATIVE)
[2023-07-24 12:36] LABS: INR 1.03 (0.9-1.15); Partial Thromboplastin Time 32.8 SEC (24.5-34.5); Prothrombin Time 10.8 sec (9.3-11.8)
[2023-07-24] MEDS: DAKINS HALF STR 0.25% (NaHypochlorite) 473 ML TOPICAL SOL TOP ONE (21:21)
[2023-07-25 05:00] VITALS: BP 151/84; PULSE 75; RESP 18; TEMP 97.7; O2SAT 98
[2023-07-25 08:00] VITALS: PULSE 75; RESP 18; O2SAT 98
[2023-07-25 09:10] VITALS: BP 140/84; PULSE 75; RESP 18; TEMP 97.4; O2SAT 98
[2023-07-25 10:00] VITALS: O2SAT 98
[2023-07-25] MEDS: LIDOCAINE 1% (LOCAL ANESTH.) PF 5ml SDV ID ONE (11:45)
[2023-07-25 12:33] VITALS: BP 125/76; PULSE 70; RESP 18; TEMP 97.5; O2SAT 98
[2023-07-25 15:02] VITALS: BP 125/76; PULSE 70; RESP 18; TEMP 97.5; O2SAT 98
[2023-07-25] MEDS ORDERED: SODIUM CHLOR 0.9% PF (SALINE LOCK) 10ML VIAL/SYR IV SCH (22:00)
== END 2023-07-25 16:00 | DRG 344 ==
LOC: ER 15:41 → TELE-EAST 22:06 → TELE 22:06 → TELE-EAST 07-20 05:15 → EAST 07-24 10:21
PROVIDERS: ADMIT Nurse Practitioner Family; ATTEND Family Medicine
PROC: 05H933Z Insertion of Infusion Device into Right Brachial Vein, Percutaneous Approach (ICD-10-PCS; principal; 2023-07-19)
PROC: B54MZZA Ultrasonography of Right Upper Extremity Veins, Guidance (ICD-10-PCS; 2023-07-19)
PROC: 02HV33Z Insertion of Infusion Device into Superior Vena Cava, Percutaneous Approach (ICD-10-PCS; 2023-07-25)
PROC: B548ZZA Ultrasonography of Superior Vena Cava, Guidance (ICD-10-PCS; 2023-07-25)
DX: E11.621 Type 2 diabetes mellitus with foot ulcer (principal); M86.671 Other chronic osteomyelitis, right ankle and foot; J96.01 Acute respiratory failure with hypoxia; N17.0 Acute kidney failure with tubular necrosis; I50.33 Acute on chronic diastolic (congestive) heart failure; L97.519 Non-pressure chronic ulcer of other part of right foot with unspecified severity; E11.22 Type 2 diabetes mellitus with diabetic chronic kidney disease; B95.62 Methicillin resistant Staphylococcus aureus infection as the cause of diseases classified elsewhere; E11.69 Type 2 diabetes mellitus with other specified complication; D64.9 Anemia, unspecified; E11.65 Type 2 diabetes mellitus with hyperglycemia; I13.0 Hypertensive heart and chronic kidney disease with heart failure and stage 1 through stage 4 chronic kidney disease, or unspecified chronic kidney disease; N18.32 Chronic kidney disease, stage 3b; E78.00 Pure hypercholesterolemia, unspecified; M20.41 Other hammer toe(s) (acquired), right foot; Z79.4 Long term (current) use of insulin; E11.42 Type 2 diabetes mellitus with diabetic polyneuropathy; Z87.891 Personal history of nicotine dependence; Z90.49 Acquired absence of other specified parts of digestive tract; Z83.3 Family history of diabetes mellitus; Z91.199 Patient's noncompliance with other medical treatment and regimen due to unspecified reason
CPT/HCPCS: 36415; 36569; 70450; 71045; 73630; 78315; 80048; 80053; 80061; 80069; 80202; 81001; 82140; 82565; 82570; 82962; 83036; 83735; 83880; 84156; 84300; 85025; 85610; 85730; 86803; 87077; 87186; 87205; 87340; 87426; 93306; 93925; 97110; 97116; 97163; G0378; J1815; J2405

== ENCOUNTER 2023-09-22 08:08 | Inpatient (IN) | payer MEDICAID ==
[~2023-09-22] VITALS: Ht 175.3 cm; Wt 65.9 kg
[~2023-09-22 08:08] MED LIST changes: +AMLO1TAB22 PO; +ATOR-507 PO; -AUG875T PO; -AZITTAB PO; -BACDST PO; -GABA-1308 PO; +GABA-339 PO; -INSLANTI SC; +INSU1INJ19 SC; -INSUINJ37 SC; -LISI10TA34 PO; -LISI2.5T47 PO; +LOSA-534 PO; -METF-370 PO; +METF-929 PO; -NAPR-746 PO; +NIFE1TAB31 PO; +PANT40TA2 PO; +PIO30T PO; +POTA-36 PO; -POTA10TA51 PO; +RAME8TAB17 PO; +TRAZ-227 PO; +VENL1TAB97 PO
[2023-09-22] MEDS: ASPirin 325 MG TAB PO ONE (08:45)
[2023-09-22 08:59] LABS: Basophils # (auto) 0 10 ^3/uL (0-0.2); Basophils % (auto) 0.2 % (0.0-2.0); Eosinophils # (auto) 0 10 ^3/uL (0-0.8); Hematocrit 37.3 % (41.0-53.0); Hemoglobin 11.9 g/dL (13.5-17.5); Lymphocytes # (auto) 0.9 10 ^3/uL (0.4-5.4); Mean Corpuscular Hemoglobin 29.2 pg (28.0-32.0); Mean Corpuscular Hgb Conc. 31.8 g/dL (32.0-36.0); Mean Corpuscular Volume 91.9 fL (80.0-100.0); Monocytes # (auto) 0.4 10 ^3/uL (0-1.3); Monocytes % (auto) 5.5 % (0.0-12.0); Neutrophils # (auto) 6.5 10 ^3/uL (1.6-8.6); Neutrophils % (auto) 82.3 % (37.0-80.0); Red Blood Cells 4.06 10^6/uL (4.5-5.90); Red Cell Distribution Width 15.5 % (11.8-14.3); White Blood Cell 7.9 10^3/uL (4.4-10.8)
[2023-09-22 09:12] LABS: INR 0.98 (0.9-1.15); Partial Thromboplastin Time 22.6 SEC (24.5-34.5); Prothrombin Time 10.3 sec (9.3-11.8)
[2023-09-22 09:15] LABS: Alanine Aminotransferase 33 U/L (7-40); Albumin 3.2 g/dL (3.2-4.8); Alkaline Phosphatase 186 U/L (46-116); Anion Gap 25 (5-15); Aspartate Aminotransferase 19 U/L (13-40); BUN/Creatinine Ratio 17.9 (10.0-20.0); Bilirubin, Total 0.5 mg/dL (0.2-1.0); Blood Urea Nitrogen 43 mg/dL (9-23); Calcium 8.7 mg/dL (8.7-10.4); Carbon Dioxide 11 mmol/L (20-30); Chloride 104 mmol/L (98-107); Sodium 140 mmol/L (136-145); Total Protein 5.2 g/dL (5.7-8.2)
[2023-09-22 09:29] LABS: Glucose 709 mg/dL (74-106)
[2023-09-22] MEDS ORDERED: DEXTROSE (50%) 50ML SYRG IV PRN (11:00)
[2023-09-22] MEDS ORDERED: NITROGLYCERIN 0.4 MG SL TAB SL PRN (12:30)
[2023-09-22 12:36] LABS: Urine Bacteria None Seen /hpf (None Seen)
[2023-09-22] MEDS ORDERED: IPRATROPIUM BROM 0.5 MG/2.5ML INH SOL NEB PRN (12:45)
[2023-09-22] MEDS ORDERED: ALBUTEROL SULF 2.5 MG/0.5ML(0.5%) NEB SOLN NEB PRN (12:45)
[2023-09-22] MEDS: INSULIN LANTUS (GLARGINE) 1 /0.01ml (100units/ml) SC ONE (12:47)
[2023-09-22 12:49] LABS: Urine Blood 1+ /uL (Negative); Urine Clarity Clear (Clear); Urine Color Light-Yellow (Yellow); Urine Protein, UAD 2+ (Negative); Urine Specific Gravity 1.021 (1.001-1.035); Urine Urobilinogen Normal (Negative); Urine WBC 1 /hpf (0 - 3)
[2023-09-22 12:52] LABS: Phosphorus 7.2 mg/dL (2.4-5.1)
[2023-09-22] MEDS: SODIUM CHLORIDE 0.9% 1,000 ML IV SCH ×2 (12:52→18:55)
[2023-09-22] MEDS: ACCU-CHEK COMFORT CURVE STRIP VI SCH (12:52)
[2023-09-22] MEDS: INSULIN DRIP 100 UNIT/100ML 100 ML IV SCH (13:04)
[2023-09-22] MEDS: ONDANSETRON HCL 4 MG/2 ML VIAL IV PRN (13:18)
[2023-09-22] MEDS: MORPHINE SULFATE INJ 2 MG/ml SYRG IV PRN (13:19)
[2023-09-22] MEDS: PANTOPRAZOLE 40 MG/10 ML VIAL INJ IV ONE (13:19)
[2023-09-22 13:20] VITALS: PULSE 96; RESP 20; O2SAT 99
[2023-09-22] MEDS ORDERED: ATOR40TA52 PO (14:54)
[2023-09-22] MEDS ORDERED: hydrALAZINE HCL 20 MG/ML VL IV PRN (15:00)
[2023-09-22 15:30] VITALS: BP 91/49; PULSE 96; RESP 16; TEMP 98.9; O2SAT 98
[2023-09-22] MEDS ORDERED: SODIUM CHLORIDE 0.9% 1,000 ML IV SCH ×2 (16:30→18:30)
[2023-09-22] MEDS: IPRATROPIUM BROM 0.5 MG/2.5ML INH SOL NEB SCH (18:20)
[2023-09-22] MEDS: ALBUTEROL SULF 2.5 MG/0.5ML(0.5%) NEB SOLN NEB SCH (18:21)
[2023-09-22 19:40] VITALS: PULSE 105; RESP 12; O2SAT 96
[2023-09-22 21:11] LABS: Chloride 110 mmol/L (98-107); Potassium 3.8 mmol/L (3.5-5.1); Sodium 141 mmol/L (136-145)
[2023-09-22 21:12] LABS: Anion Gap 11 (5-15); Carbon Dioxide 20 mmol/L (20-30)
[2023-09-22 21:13] LABS: Calcium 7.8 mg/dL (8.5-10.1)
[2023-09-22 21:18] LABS: BUN/Creatinine Ratio 13.2 (10.0-20.0); Blood Urea Nitrogen 36 mg/dL (9-23); Glucose 305 mg/dL (74-106)
[2023-09-22] MEDS: ATORVASTATIN 20 MG TAB PO SCH (22:26)
[2023-09-22] MEDS: GABAPENTIN 300 MG CAP PO SCH (22:26)
[2023-09-23] VITALS (7 sets, daily range): BP systolic 125; BP diastolic 83; PULSE 89–99; RESP 15–16; TEMP 97.8; O2SAT 96–100
[2023-09-23] MEDS ORDERED: DEXTROSE (50%) 50ML SYRG IV PRN (01:00)
[2023-09-23 03:54] LABS: Basophils # (auto) 0 10 ^3/uL (0-0.2); Basophils % (auto) 0.4 % (0.0-2.0); Eosinophils # (auto) 0.1 10 ^3/uL (0-0.8); Eosinophils % (auto) 1.7 % (0.0-7.0); Hemoglobin 10.2 g/dL (13.5-17.5); Lymphocytes # (auto) 0.8 10 ^3/uL (0.4-5.4); Lymphocytes % (auto) 13.2 % (10.0-50.0); Mean Corpuscular Hemoglobin 29.2 pg (28.0-32.0); Mean Corpuscular Volume 85.9 fL (80.0-100.0); Monocytes # (auto) 0.5 10 ^3/uL (0-1.3); Monocytes % (auto) 7.2 % (0.0-12.0); Neutrophils % (auto) 77.5 % (37.0-80.0); Nucleated Red Blood Cells % 0.1 %; Red Blood Cells 3.49 10^6/uL (4.5-5.90); Red Cell Distribution Width 14.9 % (11.8-14.3); White Blood Cell 6.4 10^3/uL (4.4-10.8)
[2023-09-23] MEDS: ACCU-CHEK COMFORT CURVE STRIP VI SCH (04:05)
[2023-09-23 04:12] LABS: Alanine Aminotransferase 24 U/L (7-40); Albumin 2.9 g/dL (3.2-4.8); Alkaline Phosphatase 145 U/L (46-116); Anion Gap 9 (5-15); Aspartate Aminotransferase 16 U/L (13-40); BUN/Creatinine Ratio 16.5 (10.0-20.0); Blood Urea Nitrogen 41 mg/dL (9-23); Calcium 7.8 mg/dL (8.7-10.4); Carbon Dioxide 23 mmol/L (20-30); Chloride 111 mmol/L (98-107); Potassium 3.7 mmol/L (3.5-5.1); Sodium 143 mmol/L (136-145)
[2023-09-23 04:13] LABS: Bilirubin, Total 0.4 mg/dL (0.2-1.0); Total Protein 4.8 g/dL (5.7-8.2)
[2023-09-23] MEDS: InsuLIN REG 1unit/0.01ml Soln (100units/ml) SC SCH (04:17)
[2023-09-23 04:18] LABS: Glucose 135 mg/dL (74-106)
[2023-09-23] MEDS: INSULIN LANTUS (GLARGINE) 1 /0.01ml (100units/ml) SC SCH (10:06)
[2023-09-23] MEDS: PANTOPRAZOLE 40 MG/10 ML VIAL INJ IV SCH (10:12)
[2023-09-23] MEDS: ASPirin-EC 81 mg tab PO SCH (10:13)
[2023-09-23] MEDS: POTASSIUM CHL 10 Meq TABLET PO SCH (10:13)
[2023-09-23] MEDS: FUROSEMIDE 40 MG TAB PO SCH (10:14)
[2023-09-23] MEDS: amLODIPine BESYLATE 5 MG TAB PO SCH (10:14)
[2023-09-23 11:41] LABS: Amphetamine Screen, Urine Pos (NEGATIVE); Barbiturate Scree,Urine Neg (NEGATIVE); Benzodiazephine Screen, Urine Neg (NEGATIVE); Cannabinoid Screen, Urine Neg (NEGATIVE); Cocaine Screen, Urine Neg (NEGATIVE); Opiate Scree,Urine Pos (NEGATIVE); Phencyclidine Screen, Urine Neg (NEGATIVE)
[2023-09-23] MEDS ORDERED: ACETAMINOPHEN 325 MG TAB PO PRN ×2 (12:45→13:00)
== END 2023-09-23 17:01 | disposition home or self-care (01) | DRG 420 ==
LOC: EDBD 08:08 → ER 08:08 → TELE 12:30
PROVIDERS: ADMIT Internal Medicine Pulmonary Disease; ATTEND Internal Medicine Pulmonary Disease
DX: E11.10 Type 2 diabetes mellitus with ketoacidosis without coma (principal); N17.0 Acute kidney failure with tubular necrosis; I50.33 Acute on chronic diastolic (congestive) heart failure; I13.0 Hypertensive heart and chronic kidney disease with heart failure and stage 1 through stage 4 chronic kidney disease, or unspecified chronic kidney disease; E11.22 Type 2 diabetes mellitus with diabetic chronic kidney disease; N18.30 Chronic kidney disease, stage 3 unspecified; E78.5 Hyperlipidemia, unspecified; E11.40 Type 2 diabetes mellitus with diabetic neuropathy, unspecified; Z91.199 Patient's noncompliance with other medical treatment and regimen due to unspecified reason; Z90.49 Acquired absence of other specified parts of digestive tract; Z79.4 Long term (current) use of insulin; Z79.82 Long term (current) use of aspirin; Z79.899 Other long term (current) drug therapy; Z87.891 Personal history of nicotine dependence; Z83.3 Family history of diabetes mellitus
CPT/HCPCS: 36415; 71045; 80048; 80053; 80307; 81001; 82010; 82962; 83735; 83880; 83930; 84100; 84132; 84484; 85025; 85610; 85730; 93005; 94640; C9113; G0378; J1815; J2405

== ENCOUNTER 2023-12-11 12:44 | Inpatient (IN) | payer MEDICAID ==
[~2023-12-11] VITALS: Ht 175.3 cm; Wt 83.1 kg
[~2023-12-11 12:44] MED LIST changes: +ATOR40TA52 PO; +HYDR-4902 PO
[2023-12-11] MEDS ORDERED: VANCOMYCIN PER PHARMACY 0 MG IV SCH ×2 (14:45→16:30)
[2023-12-11 14:54] LABS: Basophils # (auto) 0 10 ^3/uL (0-0.2); Basophils % (auto) 0.2 % (0.0-2.0); Eosinophils # (auto) 0 10 ^3/uL (0-0.8); Eosinophils % (auto) 0.4 % (0.0-7.0); Hematocrit 35.2 % (41.0-53.0); Hemoglobin 11.8 g/dL (13.5-17.5); Lymphocytes # (auto) 1.2 10 ^3/uL (0.4-5.4); Lymphocytes % (auto) 18.5 % (10.0-50.0); Mean Corpuscular Hemoglobin 29.7 pg (28.0-32.0); Mean Corpuscular Hgb Conc. 33.6 g/dL (32.0-36.0); Mean Corpuscular Volume 88.5 fL (80.0-100.0); Monocytes # (auto) 0.6 10 ^3/uL (0-1.3); Monocytes % (auto) 9.8 % (0.0-12.0); Neutrophils # (auto) 4.7 10 ^3/uL (1.6-8.6); Neutrophils % (auto) 71.1 % (37.0-80.0); Red Blood Cells 3.98 10^6/uL (4.5-5.90); Red Cell Distribution Width 14.2 % (11.8-14.3); White Blood Cell 6.6 10^3/uL (4.4-10.8)
[2023-12-11 15:16] LABS: Alanine Aminotransferase 26 U/L (7-40); Albumin 3.8 g/dL (3.2-4.8); Alkaline Phosphatase 150 U/L (46-116); Anion Gap 9 (5-15); Aspartate Aminotransferase 16 U/L (13-40); BUN/Creatinine Ratio 10.6 (10.0-20.0); Bilirubin, Total 0.4 mg/dL (0.2-1.0); Blood Urea Nitrogen 21 mg/dL (9-23); Calcium 8.3 mg/dL (8.5-10.1); Carbon Dioxide 23 mmol/L (20-30); Chloride 102 mmol/L (98-107); Creatine Kinase IFCC 71 U/L (46-171); Glucose 113 mg/dL (74-106); Potassium 3.9 mmol/L (3.5-5.1); Sodium 134 mmol/L (136-145); Total Protein 6.1 g/dL (5.7-8.2)
[2023-12-11 15:39] LABS: Lactic Acid w/Reflex 4.2 mmol/L (0.4-2.0)
[2023-12-11 16:00] VITALS: PULSE 85; RESP 14; O2SAT 99
[2023-12-11] MEDS: SODIUM CHLORIDE 0.9% 1,000 ML IV ONE ×2 (16:11→16:23)
[2023-12-11] MEDS: PIPERACILLIN-TAZOB 3.375GM 100 ML IV ONE (16:11)
[2023-12-11] MEDS ORDERED: MORPHINE SULFATE INJ 2 MG/ml SYRG IV PRN (16:30)
[2023-12-11] MEDS ORDERED: DEXTROSE (50%) 50ML SYRG IV PRN (16:30)
[2023-12-11] MEDS ORDERED: NITROGLYCERIN 0.4 MG SL TAB SL PRN ×2 (16:30)
[2023-12-11] MEDS ORDERED: ONDANSETRON HCL 4 MG/2 ML VIAL IV PRN (16:30)
[2023-12-11] MEDS: VANCOMYCIN 1GM/200ML 200 ML IV ONE (17:16)
[2023-12-11] MEDS: ACCU-CHEK COMFORT CURVE STRIP VI SCH (17:56)
[2023-12-11] MEDS: InsuLIN REG 1unit/0.01ml Soln (100units/ml) SC SCH (17:57)
[2023-12-11] MEDS: MORPHINE SULFATE INJ 2 MG/ml SYRG IV PRN (18:03)
[2023-12-11] MEDS: CARISOPRODOL 350 MG TAB PO ONE (18:03)
[2023-12-11] MEDS: cefTRIAXone 1GM/50ML D5W 50 ML IV ONE (18:04)
[2023-12-11] MEDS: SODIUM CHLORIDE 0.9% 1,000 ML IV SCH (18:04)
[2023-12-11] MEDS: ENOXAPARIN SOD 40 MG/0.4 ML SYRINGE SC SCH (18:45)
[2023-12-11 19:30] LABS: Erythrocyte Sedimentation Rate 66 mm/hr (0-20)
[2023-12-11 21:00] VITALS: BP 144/86; PULSE 80; RESP 17; TEMP 98; O2SAT 98
[2023-12-11 21:39] VITALS: BP 144/86; PULSE 86; RESP 16; RESP 17; TEMP 98; O2SAT 98
[2023-12-11] MEDS: NIFEdipine ER 30 MG TAB PO SCH (23:45)
[2023-12-11] MEDS: GABAPENTIN 300 MG CAP PO SCH (23:46)
[2023-12-12] VITALS (10 sets, daily range): BP systolic 93–186; BP diastolic 52–100; PULSE 72–88; RESP 15–20; TEMP 97.4–98; O2SAT 95–99
[2023-12-12 07:08] LABS: Alanine Aminotransferase 20 U/L (7-40); Albumin 3.1 g/dL (3.2-4.8); Alkaline Phosphatase 120 U/L (46-116); Anion Gap 8 (5-15); Aspartate Aminotransferase 12 U/L (13-40); BUN/Creatinine Ratio 13.2 (10.0-20.0); Bilirubin, Total 0.4 mg/dL (0.2-1.0); Blood Urea Nitrogen 20 mg/dL (9-23); Calcium 7.8 mg/dL (8.5-10.1); Carbon Dioxide 22 mmol/L (20-30); Chloride 107 mmol/L (98-107); Glucose 167 mg/dL (74-106); Potassium 4.2 mmol/L (3.5-5.1); Sodium 137 mmol/L (136-145)
[2023-12-12 07:16] LABS: Basophils # (auto) 0 10 ^3/uL (0-0.2); Basophils % (auto) 0.4 % (0.0-2.0); Eosinophils # (auto) 0.1 10 ^3/uL (0-0.8); Hematocrit 29.3 % (41.0-53.0); Hemoglobin 9.8 g/dL (13.5-17.5); Lymphocytes # (auto) 0.9 10 ^3/uL (0.4-5.4); Lymphocytes % (auto) 18.6 % (10.0-50.0); Mean Corpuscular Hemoglobin 29.7 pg (28.0-32.0); Mean Corpuscular Hgb Conc. 33.3 g/dL (32.0-36.0); Mean Corpuscular Volume 89.3 fL (80.0-100.0); Monocytes # (auto) 0.5 10 ^3/uL (0-1.3); Monocytes % (auto) 10.1 % (0.0-12.0); Neutrophils # (auto) 3.3 10 ^3/uL (1.6-8.6); Neutrophils % (auto) 68.9 % (37.0-80.0); Nucleated Red Blood Cells % 0.1 %; Red Blood Cells 3.28 10^6/uL (4.5-5.90); Red Cell Distribution Width 14.2 % (11.8-14.3); White Blood Cell 4.8 10^3/uL (4.4-10.8)
[2023-12-12] MEDS: traZODone HCL 50 MG TAB PO SCH (09:11)
[2023-12-12] MEDS: VENLAFAXINE HCL 37.5MG TABLET PO SCH (09:11)
[2023-12-12] MEDS: amLODIPine BESYLATE 5 MG TAB PO SCH (09:11)
[2023-12-12] MEDS: PANTOPRAZOLE 40 MG TAB PO SCH (09:12)
[2023-12-12] MEDS: cefTRIAXone 1GM/50ML D5W 50 ML IV SCH (09:13)
[2023-12-12] MEDS: VANCOMYCIN 1GM/200ML 200 ML IV SCH (09:13)
[2023-12-12] MEDS: LOSARTAN POTASSIUM 50 MG TAB PO SCH (09:18)
[2023-12-12] MEDS ORDERED: LOSA-533 PO (09:28)
[2023-12-12] MEDS ORDERED: METH-1181 PO (09:37)
[2023-12-12] MEDS ORDERED: SEMA2INJ3 SC (09:37)
[2023-12-12] MEDS ORDERED: ERGO1CAP12 PO (09:37)
[2023-12-12] MEDS ORDERED: DAPAGLIFLOZIN PROPANEDIOL 5 MG PO SCH (10:00)
[2023-12-12] MEDS: INSULIN LANTUS (GLARGINE) 1 /0.01ml (100units/ml) SC ONE (17:47)
[2023-12-12] MEDS: ATORVASTATIN 20 MG TAB PO SCH (22:52)
[2023-12-13] VITALS (8 sets, daily range): BP systolic 88–131; BP diastolic 56–78; PULSE 70–84; RESP 16–20; TEMP 97.2–98.6; O2SAT 93–99
[2023-12-13 01:41] LABS: Urine Bacteria None Seen /hpf (None Seen)
[2023-12-13 01:56] LABS: Urine Blood Negative /uL (Negative); Urine Clarity Clear (Clear); Urine Color Light-Yellow (Yellow); Urine Protein, UAD 2+ (Negative); Urine Specific Gravity 1.015 (1.001-1.035); Urine Urobilinogen Normal (Negative); Urine WBC 1 /hpf (0 - 3); Urine pH 5.5 (5.0-9.0)
[2023-12-13 01:59] LABS: Amphetamine Screen, Urine Neg (NEGATIVE); Benzodiazephine Screen, Urine Neg (NEGATIVE)
[2023-12-13 02:00] LABS: Barbiturate Scree,Urine Neg (NEGATIVE); Cannabinoid Screen, Urine Neg (NEGATIVE); Cocaine Screen, Urine Neg (NEGATIVE); Creatinine, Urine 53.21 mg/dL (30.0-125.0); Opiate Scree,Urine Neg (NEGATIVE); Phencyclidine Screen, Urine Neg (NEGATIVE)
[2023-12-13] MEDS: DOCUSATE SOD 100 MG CAP PO PRN (05:47)
[2023-12-13] MEDS: INSULIN LANTUS (GLARGINE) 1 /0.01ml (100units/ml) SC SCH (06:04)
[2023-12-13 11:28] LABS: Basophils # (auto) 0 10 ^3/uL (0-0.2); Basophils % (auto) 0.6 % (0.0-2.0); Eosinophils # (auto) 0.1 10 ^3/uL (0-0.8); Eosinophils % (auto) 2.2 % (0.0-7.0); Hematocrit 31.4 % (41.0-53.0); Hemoglobin 10.3 g/dL (13.5-17.5); Lymphocytes # (auto) 1.2 10 ^3/uL (0.4-5.4); Lymphocytes % (auto) 26.5 % (10.0-50.0); Mean Corpuscular Hemoglobin 29.5 pg (28.0-32.0); Mean Corpuscular Hgb Conc. 32.8 g/dL (32.0-36.0); Mean Corpuscular Volume 89.8 fL (80.0-100.0); Monocytes # (auto) 0.4 10 ^3/uL (0-1.3); Monocytes % (auto) 7.7 % (0.0-12.0); Neutrophils # (auto) 2.9 10 ^3/uL (1.6-8.6); Nucleated Red Blood Cells % 0.1 %; Red Blood Cells 3.49 10^6/uL (4.5-5.90); Red Cell Distribution Width 14.5 % (11.8-14.3); White Blood Cell 4.6 10^3/uL (4.4-10.8)
[2023-12-13 11:36] LABS: INR 0.93 (0.9-1.15); Partial Thromboplastin Time 30.5 SEC (24.5-34.5); Prothrombin Time 9.9 sec (9.3-11.8)
[2023-12-13 12:06] LABS: Chloride 108 mmol/L (98-107); Potassium 4.3 mmol/L (3.5-5.1); Sodium 135 mmol/L (136-145)
[2023-12-13 12:07] LABS: Anion Gap 8 (5-15); Calcium 8.2 mg/dL (8.7-10.4); Carbon Dioxide 19 mmol/L (20-30)
[2023-12-13 12:12] LABS: BUN/Creatinine Ratio 12.3 (10.0-20.0); Blood Urea Nitrogen 22 mg/dL (9-23); Glucose 211 mg/dL (74-106)
[2023-12-13] MEDS: MORPHINE SULFATE INJ 2 MG/ml SYRG IV PRN (17:55)
[2023-12-13] MEDS: MUPIROCIN 2% OINT 15gm or 22gm FOR MRSA NARES EACHNOSTRI SCH (21:35)
[2023-12-14] VITALS (8 sets, daily range): BP systolic 109–138; BP diastolic 67–84; PULSE 85–94; RESP 18–20; TEMP 97.3–98; O2SAT 96–98
[2023-12-14] MEDS: CARISOPRODOL 350 MG TAB PO PRN (00:07)
[2023-12-14] MEDS: INSULIN LANTUS (GLARGINE) 1 /0.01ml (100units/ml) SC SCH (06:41)
[2023-12-14 18:32] LABS: Erythrocyte Sedimentation Rate 91 mm/hr (0-20)
[2023-12-14] MEDS: LINEZOLID 600MG/300ML 300 ML IV SCH (21:42)
[2023-12-15] VITALS (7 sets, daily range): BP systolic 104–128; BP diastolic 54–82; PULSE 82–99; RESP 16–20; TEMP 97.6–98.1; O2SAT 96–98
[2023-12-15 06:40] LABS: Alanine Aminotransferase 16 U/L (7-40); Alkaline Phosphatase 117 U/L (46-116); Anion Gap 8 (5-15); BUN/Creatinine Ratio 14.8 (10.0-20.0); Blood Urea Nitrogen 28 mg/dL (9-23); Calcium 7.9 mg/dL (8.5-10.1); Carbon Dioxide 17 mmol/L (20-30); Chloride 110 mmol/L (98-107); Glucose 220 mg/dL (74-106); Potassium 5.1 mmol/L (3.5-5.1); Sodium 135 mmol/L (136-145)
[2023-12-15 06:41] LABS: Albumin 2.9 g/dL (3.2-4.8); Aspartate Aminotransferase 15 U/L (13-40)
[2023-12-15 06:42] LABS: Bilirubin, Total 0.2 mg/dL (0.2-1.0); Total Protein 4.9 g/dL (5.7-8.2)
[2023-12-15] MEDS: INSULIN LANTUS (GLARGINE) 1 /0.01ml (100units/ml) SC ONE (18:36)
[2023-12-16] VITALS (7 sets, daily range): BP systolic 106–123; BP diastolic 61–76; PULSE 85–99; RESP 16–18; TEMP 97.4–98.2; O2SAT 95–98
[2023-12-16] MEDS: INSULIN LANTUS (GLARGINE) 1 /0.01ml (100units/ml) SC SCH (06:22)
[2023-12-16 14:14] LABS: Hepatitis C Antibody Negative (Negative)
[2023-12-16 14:41] LABS: Alanine Aminotransferase 19 U/L (7-40); Albumin 2.8 g/dL (3.2-4.8); Alkaline Phosphatase 104 U/L (46-116); Anion Gap 9 (5-15); Aspartate Aminotransferase 20 U/L (13-40); BUN/Creatinine Ratio 17.3 (10.0-20.0); Bilirubin, Total < 0.2 mg/dL (0.2-1.0); Blood Urea Nitrogen 33 mg/dL (9-23); Calcium 7.8 mg/dL (8.7-10.4); Carbon Dioxide 13 mmol/L (20-30); Chloride 112 mmol/L (98-107); Glucose 132 mg/dL (74-106); Potassium 4.9 mmol/L (3.5-5.1); Sodium 134 mmol/L (136-145); Total Protein 4.7 g/dL (5.7-8.2)
[2023-12-16] MEDS: MUPIROCIN 2% OINT 15gm or 22gm FOR MRSA NARES EACHNOSTRI SCH (22:34)
[2023-12-17 03:37] LABS: Hepatitis B Surface Antigen Negative (Negative)
[2023-12-17 05:00] VITALS: BP 145/84; PULSE 89; RESP 18; TEMP 98.1; O2SAT 96
[2023-12-17 08:00] VITALS: BP 151/89; PULSE 92; RESP 16; TEMP 97.8; O2SAT 98
[2023-12-17] MEDS: EMPAGLIFLOZIN 10 MG TAB PO SCH (10:09)
[2023-12-17] MEDS: LOSARTAN POTASSIUM 50 MG TAB PO SCH (10:09)
[2023-12-17] MEDS ORDERED: DOXY-286 PO (10:51)
[2023-12-17 12:00] VITALS: BP 139/86; PULSE 99; RESP 18; TEMP 97.8; O2SAT 99
[2023-12-17 17:39] VITALS: BP 132/76; PULSE 98; RESP 18; TEMP 97.8; O2SAT 95
[2023-12-17] MEDS ORDERED: traZODone HCL 50 MG TAB PO SCH (22:00)
== END 2023-12-17 18:12 | disposition home health service (06) | DRG 383 ==
LOC: ER 12:44 → EDUNIT# 12:44 → EDBD 12:44 → TELE-WESTW 18:36 → TELE 18:36 → TELE-WESTW 21:23 → WEST WING 12-17 00:04
PROVIDERS: ADMIT Internal Medicine; ATTEND Internal Medicine
PROC: 05H933Z Insertion of Infusion Device into Right Brachial Vein, Percutaneous Approach (ICD-10-PCS; principal; 2023-12-16)
PROC: B54MZZA Ultrasonography of Right Upper Extremity Veins, Guidance (ICD-10-PCS; 2023-12-16)
DX: L03.031 Cellulitis of right toe (principal); N17.0 Acute kidney failure with tubular necrosis; L97.519 Non-pressure chronic ulcer of other part of right foot with unspecified severity; D63.8 Anemia in other chronic diseases classified elsewhere; I13.0 Hypertensive heart and chronic kidney disease with heart failure and stage 1 through stage 4 chronic kidney disease, or unspecified chronic kidney disease; L97.529 Non-pressure chronic ulcer of other part of left foot with unspecified severity; I50.42 Chronic combined systolic (congestive) and diastolic (congestive) heart failure; E11.22 Type 2 diabetes mellitus with diabetic chronic kidney disease; L03.032 Cellulitis of left toe; E11.40 Type 2 diabetes mellitus with diabetic neuropathy, unspecified; E11.621 Type 2 diabetes mellitus with foot ulcer; E11.65 Type 2 diabetes mellitus with hyperglycemia; E78.5 Hyperlipidemia, unspecified; G89.29 Other chronic pain; M54.9 Dorsalgia, unspecified; N18.30 Chronic kidney disease, stage 3 unspecified; F41.9 Anxiety disorder, unspecified; F32.A Depression, unspecified; G47.00 Insomnia, unspecified; M76.62 Achilles tendinitis, left leg; M76.61 Achilles tendinitis, right leg; M19.072 Primary osteoarthritis, left ankle and foot; I25.10 Atherosclerotic heart disease of native coronary artery without angina pectoris; M62.838 Other muscle spasm; G25.81 Restless legs syndrome; Z87.891 Personal history of nicotine dependence; Z79.4 Long term (current) use of insulin; W18.39XA Other fall on same level, initial encounter; Y93.89 Activity, other specified; Y92.090 Kitchen in other non-institutional residence as the place of occurrence of the external cause; Y99.8 Other external cause status
CPT/HCPCS: 36415; 73630; 73700; 80048; 80053; 80202; 80307; 81001; 82550; 82565; 82570; 82962; 83605; 83735; 84300; 84484; 85025; 85610; 85652; 85730; 86141; 86803; 87040; 87077; 87081; 87186; 87205; 87340; 93925; 93970; 96365; 96367; 97163; 99291; G0378; J1815; J2543